=== PATIENT | female | born 1965 | race Caucasian/White ===

== ENCOUNTER → 2020-01-02 15:52 | Outpatient (BNVA) | payer SELFPAY | PROVIDERS: Family Provider Nurse Practitioner Family; PCP Nurse Practitioner Family; Visit Provider Nurse Practitioner Family | DX: R05 Cough (principal); R69 Illness, unspecified; J06.9 Acute upper respiratory infection, unspecified | CPT/HCPCS: 87804 ==

== ENCOUNTER → 2020-07-19 11:09 | Outpatient (BNVA) | payer OTHER, SELFPAY | PROVIDERS: Family Provider Nurse Practitioner Family; PCP Nurse Practitioner Family; Visit Provider Nurse Practitioner Family | DX: Z20.828 Contact with and (suspected) exposure to other viral communicable diseases (principal); J06.9 Acute upper respiratory infection, unspecified | CPT/HCPCS: 87635 ==

== ENCOUNTER → 2020-11-20 16:39 | Outpatient (BNVA) | payer BC, SELFPAY | PROVIDERS: Family Provider Nurse Practitioner Family; PCP Nurse Practitioner Family; Visit Provider Registered Nurse | DX: I10 Essential (primary) hypertension (principal) | CPT/HCPCS: 80053; 80061; 85025 ==

== ENCOUNTER → 2021-04-26 09:28 | Outpatient (BNVA) | payer BC, SELFPAY | PROVIDERS: Family Provider Nurse Practitioner Family; PCP Registered Nurse; Visit Provider Registered Nurse | DX: R10.9 Unspecified abdominal pain (principal); R10.11 Right upper quadrant pain; F41.8 Other specified anxiety disorders | CPT/HCPCS: 81000 ==

== ENCOUNTER → 2021-05-06 16:43 | Outpatient (BNVA) | payer BC, SELFPAY | PROVIDERS: Family Provider Nurse Practitioner Family; PCP Registered Nurse; Visit Provider Registered Nurse | DX: R10.11 Right upper quadrant pain (principal); K76.89 Other specified diseases of liver | CPT/HCPCS: 81000 ==

== ENCOUNTER 2021-05-11 08:14 | Emergency (ER) | payer BC, SELFPAY ==
[2021-05-11 08:25] VITALS: BP 156/93; PULSE 77; RESP 18; TEMP 36.6; O2SAT 96; BMI 20.7
[2021-05-11 08:32] VITALS: BP 147/88; RESP 18
--- NOTE | 2021-05-11 08:39 | ED_ITS ---
HPI - Abdominal Pain General: Chief Complaint: Abdominal Pain Stated Complaint: R ABD pain Time Seen by Provider: 05/11/21 08:20 History of Present Illness: HPI narrative: Patient is a 56-year-old female comes to the ED with abdominal pain. Patient has been having this pain for the past 2 weeks. She has seen her primary care physician for this complaint and she had an ultrasound of her gallbladder done back around April 28 that showed sludge in the gallbladder. She says that she has an appointment with an [facility] general surgeon on May 23 to discuss getting gallbladder removed. The past couple days the pain is gotten worse and she currently rates the pain at 10 out of 10. It is located in the right upper quadrant of her abdomen and it radiates to towards her back right shoulder. She has nausea and says she has not been able to eat much or drink much over the past couple days. Denies any emesis. She has a past surgical history of hysterectomy.. Associated Symptoms: Reports diarrhea and nausea; Denies chills, constipation, dysuria, fever(s), hematochezia, hematuria and vomiting Review of Systems Const: Denies: fever(s), chills or fatigue Eyes: Denies: change in vision or eye discomfort ENMT: Denies: throat pain, odynophagia, nasal discharge or nasal congestion Card: Denies: chest pain, palpitations, edema, swelling of feet/ankles, dyspnea on exertion or orthopnea Resp: Denies: dyspnea, productive cough or non-productive cough GI: Reports: abdominal pain, nausea and diarrhea; Denies: vomiting, constipation or hematochezia : Denies: flank pain, dysuria or hematuria Musc: Denies: neck pain, back pain or extremity swelling Skin/Breast: Denies: rash or new lesions Neuro: Denies: headache(s), numbness in extremities or weakness in extremities PFSH ED PFSH: Medical History Depression with anxiety Essential hypertension Social History Smoking and tobacco status: current every day smoker cigarettes Packs smoked per day: 1 Second hand smoke exposure: Yes Physical Exam Const: COMMON NORMALS: no acute distress, patient oriented x3, healthy appearing and alert GENERAL APPEARANCE: cooperative and comfortable HENMT: COMMON NORMALS: normocephalic HEAD & SCALP: normocephalic MOUTH: Normal oral and palatal mucosa present THROAT: posterior oropharynx normal and uvula midline Neck/C-Spine: COMMON NORMALS: supple GENERAL: Yes normal visual inspection Resp: COMMON NORMALS: normal respiratory effort, No retractions, No use of accessory muscles and clear to auscultation bilaterally AUSCULTATION: clear to auscultation bilaterally Cardio: COMMON NORMALS: regular rate, regular rhythm, S1 normal heart sound present, S2 normal heart sound present, No gallops present (Cardio), No clicks present (Cardio), No murmurs present (Cardio) and Peripheral pulses 2+ throughout RATE: regular rate RHYTHM: regular rhythm HEART SOUNDS: S1 normal heart sound present and S2 normal heart sound present PERIPHERAL PULSES: Peripheral pulses 2+ throughout GI: COMMON NORMALS: Normal to inspection, nondistended, normoactive bowel sounds present, Soft to palpation and no masses PALPATION: Yes Soft to palpation and Yes Tenderness to palpation present (GI) Details: RUQ (Positive Diaz sign) : COMMON NORMALS: Yes no CVA tenderness BLADDER/KIDNEY EXAM: Yes no CVA tenderness Back/Pelvis: COMMON NORMALS: no CVA tenderness Extremity: COMMON NORMALS: normal to inspection Neuro: COMMON NORMALS: patient oriented x3 SENSORIUM/ORIENTATION: Yes alert GAIT: Yes Normal gait present Skin: GENERAL SKIN EXAM: dry skin Course Vital Signs: Vital signs: Vital Signs Temperature 97.8 F 05/11/21 08:25 Pulse Rate 98 05/11/21 11:31 Respiratory Rate 18 05/11/21 11:31 Blood Pressure 130/81 05/11/21 11:31 Pulse Oximetry 96 05/11/21 11:31 MDM - Abdominal Pain MDM Narrative: Medical decision making narrative: Patient is a 56-year-old female comes to the ED with right upper quadrant abdominal pain. She has had this right upper quadrant abdominal pain before in the past. she currently has an appointment with a general surgeon scheduled for May 23. Vitals are stable. Patient appears nontoxic and in no acute distress. CBC, CMP and lipase were unremarkable. Ultrasound of the gallbladder showed no significant abnormality. I put an order with case management to see if patient's appointment with a general surgeon can be moved up to an earlier date. Patient diagnosed with biliary colic and discharged home with a prescription for hydrocodone and Zofran. Return ED precautions given. Clear liquid diet and advance slowly as tolerated. Patient understood and agreed with plan. Lab Data: Attestation: I reviewed the patient's lab results. Labs: Lab Results 05/11/21 05/11/21 05/11/21 Range/Units 08:59 09:32 09:32 WBC 6.0 (4.0-10.0) 10^3/ uL RBC 5.07 (4.1-5.3) 10^6/u L Hgb 15.0 (11.5-15.3) g/dL Hct 45.2 (37.0-47.0) % MCV 89.2 (81-99) fL MCH 29.6 (28.0-34.0) pg MCHC 33.2 (30.0-36.0) g/dL RDW 13.1 (12.1-15.1) % Plt Count 205 (130-400) 10^3/c mm MPV 10.0 (7.4-10.4) fL Neut % (Auto) 56.1 % Lymph % (Auto) 34.9 % Reeves % (Auto) 6.8 % Eos % (Auto) 1.2 % Baso % (Auto) 0.8 % Neut # (Auto) 3.36 (1.8-7.7) 10^3/u L Lymph # (Auto) 2.1 (0.8-4.8) 10^3/u L Reeves # (Auto) 0.4 (0.2-0.9) 10^3/u L Eos # (Auto) 0.1 (0.0-0.8) 10^3/u L Baso # (Auto) 0.1 (0.0-0.1) 10^3/u L Nucleated RBC % (a uto) 0 % Nucleated RBCs # 0.0 /100WBC Sodium 143 (136-145) mmol/L Potassium 4.3 (3.5-5.1) mmol/L Chloride 109 H (98-107) mmol/L Carbon Dioxide 23 (22-29) mmol/L Anion Gap 15.3 (5-19) BUN 15 (6-20) mg/dL Creatinine 1.0 H (0.5-0.9) mg/dL GFR Calculation 57.4 L (90-130) mL/min Glucose 93 (65-115) mg/dL Calculated Osmolal ity 297 H (285-295) mOsm/k g Calcium 8.8 (8.5-10.5) mg/dL Total Bilirubin 0.4 (0.15-1.2) mg/dL AST 12 (0-32) U/L ALT 14 (0-33) U/L Alkaline Phosphata se 66 (35-105) IU/L Total Protein 6.2 L (6.6-8.7) g/dL Albumin 4.4 (3.5-5.2) g/dL Globulin 1.8 (1.3-4.6) g/dL Lipase 19 (13-60) U/L Urine Color Yellow (Yellow) Urine Appearance Clear (CLEAR) Urine pH 5 (5-7) Ur Specific Gravit y 1.015 (1.005-1.030) Urine Protein Neg (Negative) Urine Glucose (UA) Norm (Normal) Urine Ketones Negative (Negative) Urine Blood 3+ H (Negative) Urine Nitrate Negative (Negative) Urine Bilirubin Neg (Negative) Urine Urobilinogen Norm (Negative) mg/dL Ur Leukocyte Lu ase Negative (Negative) Urine RBC 0-4 H (0-2) /hpf Urine WBC Rare (0-5) /hpf Ur Squamous Epith Cells 0-4 H (0-5) /hpf Amorphous Sediment Not Reportable Urine Bacteria Trace (NONE) /hpf Imaging Data ^: US: Attestation: I personally reviewed and interpreted this imaging study as follows: Radiologist's impression: [address] [address] Ultrasound Report Signed Patient: Jaki Larson I Unit #: [id number] : 1965 Age/Sex: 56 / F ADM Date: 05/11/21 Loc: ER Room/Bed: Attending Dr: Ordering Provider/Ordering MD: Nasim Sears Date of Service: 05/11/21 Procedure(s): US gall bladder [id number] Accession Number(s): [id number] Report Number: [id number] PROCEDURE INFORMATION: Exam: US Abdomen, Limited; Right Upper Quadrant Exam date and time: 05/11/2021 8:46 AM Age: 56 years old Clinical indication: Abdominal pain; Additional info: Ruq pain with nausea TECHNIQUE: Imaging protocol: US abdomen. Real time ultrasound with image documentation. Limited exam focused on the right upper quadrant. COMPARISON: No relevant prior studies available. FINDINGS: Liver: There is a 1.2 cm benign cyst in the liver probably in the left lobe. Otherwise liver is unremarkable. No suspicious liver masses are seen. Gallbladder: Normal. No gallstones. There is no gallbladder wall thickening. Common bile duct: Normal. No stones. No dilation. Pancreas: Visualized pancreas is unremarkable. Right kidney: Normal. No mass. No hydronephrosis. US/US gall bladder [id number] IMPRESSION: No significant abnormality. Normal gallbladder and bile ducts. Dictated By: Lamonte Elkins Signed By: Lamonte Elkins Signed Date/Time: 05/11/211126 DD/ 112 Discharge Plan Discharge Patient Disposition: Home Clinical Impression: Biliary colic Condition: Stable Prescriptions: New Zofran 4 mg tablet 4 mg PO Q8H Qty: 15 RF: 0 No Action fluticasone propionate [Flonase Allergy Relief] 50 mcg/actuation spray,suspension 1 spray intranasal BID Qty: 16 RF: 0 buspirone 5 mg tablet 5 mg PO TID PRN (Reason: anxiety) 30 Days Qty: 75 RF: 2 escitalopram oxalate 10 mg tablet 10 mg PO DAILY 90 Days Qty: 90 RF: 1 pantoprazole 20 mg tablet,delayed release (DR/EC) 20 mg PO DAILY 90 Days Qty: 90 RF: 1 ondansetron HCl [Zofran] 4 mg tablet 4 mg PO BID 5 Days Qty: 10 RF: 0 telmisartan [Micardis] 40 mg tablet 40 mg PO DAILY Qty: 90 RF: 0 Discharge Orders: Discharge ED (Routine); Ordered 05/11/21 Ordered By: Nasim Sears Referrals: Lulu Vidal FNP [Primary Care Provider] - Discharge Diet: Advance as tolerated and Clear Liquid Discharge Activity: Increase activity as tolerated Patient Instructions: Biliary Colic (ED), Opioid Safety Activity Restrictions/Additional Instructions: Follow-up with medical provider as directed. Case management will be contacting you to see if they can move up your previously scheduled general surgery appointment. Take medications as prescribed. Return to the ER or your medical provider if condition worsens. Please read and understand discharge instructions. Thank you for choosing [facility] for your healthcare needs today. Please realize this is an emergency room and that we are providing you with a medical screening exam and this may not be complete and all inclusive of all the testing and or work up that you may need to determine your ailment or severity of your illness. It is very important that you follow up as instructed or that you return to the Emergency Department should you have concerns or if your condition changes or worsens in any way. Coding Level of Care Code ED News Camera Person for Garrett Fwd Exam Comprehensive
--- NOTE | 2021-05-11 08:46 | USR_ITS ---
PROCEDURE INFORMATION: Exam: US Abdomen, Limited; Right Upper Quadrant Exam date and time: 05/11/2021 8:46 AM Age: 56 years old Clinical indication: Abdominal pain; Additional info: Ruq pain with nausea TECHNIQUE: Imaging protocol: US abdomen. Real time ultrasound with image documentation. Limited exam focused on the right upper quadrant. COMPARISON: No relevant prior studies available. FINDINGS: Liver: There is a 1.2 cm benign cyst in the liver probably in the left lobe. Otherwise liver is unremarkable. No suspicious liver masses are seen. Gallbladder: Normal. No gallstones. There is no gallbladder wall thickening. Common bile duct: Normal. No stones. No dilation. Pancreas: Visualized pancreas is unremarkable. Right kidney: Normal. No mass. No hydronephrosis. US/US gall bladder [id number] IMPRESSION: No significant abnormality. Normal gallbladder and bile ducts.
--- NOTE | 2021-05-11 08:57 | PC.NURSE ---
Ultrasound at patient bedside.
[2021-05-11] MEDS: sodium chloride 0.9% 1,000 ML 999 ML IV (09:40)
[2021-05-11] MEDS: ondansetron 2 mg/ML SDV 2 mL 4 MG IVP (09:41)
[2021-05-11 09:42] LABS: Basophils # 0.1 10^3/uL (0.0-0.1); Basophils % 0.8 %; Eosinophils # 0.1 10^3/uL (0.0-0.8); Eosinophils % 1.2 %; Hematocrit 45.2 % (37.0-47.0); Lymphocytes # 2.1 10^3/uL (0.8-4.8); Lymphocytes % 34.9 %; Mean Corpuscular HGB Conc 33.2 g/dL (30.0-36.0); Mean Corpuscular Hemoglobin 29.6 pg (28.0-34.0); Mean Corpuscular Volume 89.2 fL (81-99); Monocytes # 0.4 10^3/uL (0.2-0.9); Monocytes % 6.8 %; Neutrophils # 3.36 10^3/uL (1.8-7.7); Neutrophils % 56.1 %; Nucleated Red Blood Cells % 0 %; Platelet Count 205 10^3/cmm (130-400); Red Blood Count 5.07 10^6/uL (4.1-5.3); Red Cell Distribution Width 13.1 % (12.1-15.1)
[2021-05-11 09:45] LABS: Add Urine Culture? No; Bacteria Urine TRACE /hpf; Bilirubin Urine Neg (Negative); Blood Urine 3+ (Negative); Glucose Urine UA Norm (Normal); Ketones Urine Negative (Negative); Leukocyte Esterase Urine Negative (Negative); Nitrate Urine Negative (Negative); Protein Urine Neg (Negative); RBC Urine 0-4 /hpf (0-2); Specific Gravity, Urine 1.015 (1.005-1.030); Squamous Epithelial Cell Urine 0-4 /hpf (0-5); Urine Appearance Clear (CLEAR); Urine Color Yellow (Yellow); Urobilinogen Urine Norm (Negative); WBC Urine RARE /hpf (0-5); pH Urine 5 (5-7)
[2021-05-11 09:49] VITALS: RESP 18
[2021-05-11] MEDS: morphine 4 mg/mL SDV 1 mL IVP (09:49)
[2021-05-11 09:55] VITALS: BP 134/82; PULSE 63; RESP 18; O2SAT 97
[2021-05-11 10:13] LABS: Alanine Aminotransferase 14 U/L (0-33); Albumin Level 4.4 g/dL (3.5-5.2); Alkaline Phosphatase 66 IU/L (35-105); Anion Gap 15.3 (5-19); Aspartate Amino Transferase 12 U/L (0-32); Blood Urea Nitrogen 15 mg/dL (6-20); Calcium 8.8 mg/dL (8.5-10.5); Carbon Dioxide 23 mmol/L (22-29); Chloride 109 mmol/L (98-107); Globulin 1.8 g/dL (1.3-4.6); Glomerular Filtration Rate 57.4 mL/min (90-130); Glucose 93 mg/dL (65-115); Lipase 19 U/L (13-60); Osmolality Calculated 297 mOsm/kg (285-295); Potassium 4.3 mmol/L (3.5-5.1); Sodium 143 mmol/L (136-145); Total Bilirubin 0.4 mg/dL (0.15-1.2); Total Protein 6.2 g/dL (6.6-8.7)
[2021-05-11 11:31] VITALS: BP 130/81; PULSE 98; RESP 18; O2SAT 96
--- NOTE | 2021-05-13 11:19 | DCPLANNER ---
paper mill manager had message to schedule a follow up appointment for patient with general surgery. paper mill manager emailed patients information to both Tiffany and Maia at [facility] General Surgery. paper mill manager also asked the clinic if patients appointment scheduled could be rescheduled sooner. Patients information will be printed and reviewed.
--- NOTE | 2021-05-14 14:53 | DCPLANNER ---
Patient has a follow up appointment scheduled for , May 16, 2021 at 3:[address] Gandara. Clinic will call patient with appointment information.
--- NOTE | 2021-06-14 13:57 | DCPLANNER ---
Patient had a follow up appointment scheduled for 05.16.21 with general surgery - patient did attend appointment.
== END 2021-05-11 11:41 | disposition home or self-care (01) ==
PROVIDERS: Emergency Provider Physician Assistant; PCP Registered Nurse
DX: K80.50 Calculus of bile duct without cholangitis or cholecystitis without obstruction (principal); I10 Essential (primary) hypertension; F17.210 Nicotine dependence, cigarettes, uncomplicated
CPT/HCPCS: 76705; 80053; 81001; 83690; 85025; 96361; 96374; 96375; 99284; J2270; J2405; J7030

== ENCOUNTER 2021-05-21 06:49 | Outpatient (CLI) | payer BC, SELFPAY ==
--- NOTE | 2021-05-21 08:00 | NM_ITS ---
WS: [id number] NUCLEAR MEDICINE HIDA SCAN CLINICAL INFORMATION: R10.11 - Right upper quadrant pain TECHNIQUE: Following intravenous administration of 5.7 mCi of technetium 99m mebrofenin, images of th e abdomen were obtained over the course of 60 minutes. Next, gallbladder ejection fraction was determ ined by obtaining preprandial and one-hour postprandial images of the gallbladder following oral cody stion of Ensure. COMPARISON: US 05/15 FINDINGS: Normal hepatic uptake at 5 minutes. Normal hepatic excretion. Common bile duct and small bowel activi ty normally visualized. Gallbladder is visualized by 20 minutes. No evidence of acute cholecystitis. Gallbladder ejection fra ction 74% within normal limits. No evidence of chronic cholecystitis. NM/NM hepatobiliary w phar* [id number] IMPRESSION: 1. No evidence of acute or chronic cholecystitis. 2. Gallbladder ejection fraction 74% within normal limits.
== END 2021-05-21 06:50 | disposition home or self-care (01) ==
PROVIDERS: PCP Registered Nurse; Visit Provider Surgery
DX: R10.11 Right upper quadrant pain (principal)
CPT/HCPCS: 78227; A9537

== ENCOUNTER → 2021-05-24 11:36 | Outpatient (BNVA) | payer BC, SELFPAY | PROVIDERS: PCP Registered Nurse; Visit Provider Surgery | DX: Z20.822 Contact with and (suspected) exposure to COVID-19 (principal); Z01.812 Encounter for preprocedural laboratory examination | CPT/HCPCS: 87635 ==

== ENCOUNTER → 2021-05-30 15:33 | Outpatient (BNVA) | payer BC, SELFPAY | PROVIDERS: PCP Registered Nurse; Visit Provider Surgery | DX: Z20.822 Contact with and (suspected) exposure to COVID-19 (principal); Z01.812 Encounter for preprocedural laboratory examination | CPT/HCPCS: 87635 ==

== ENCOUNTER 2021-06-04 08:44 | Day surgery (SDC) | payer BC, SELFPAY ==
[2021-06-03 13:19] VITALS: BMI 20.2
[2021-06-04] VITALS (8 sets, daily range): BP systolic 101–141; BP diastolic 53–87; PULSE 63–72; RESP 16–22; TEMP 36.2–36.6; O2SAT 94–99
[2021-06-04] MEDS: sodium chloride 0.9% 1,000 ML 30 ML IV (09:33)
--- NOTE | 2021-06-04 10:09 | ANES.PREANE2 ---
Pre-Anesthetic Assessment Pre-Anesthetic Assessment: Height/Weight: Height 1.65 m Weight 55.338 kg Temp Pulse Resp BP Pulse Ox 97.2 F L 63 16 141/87 97 06/04/21 09:17 06/04/21 09:17 06/04/21 09:17 06/04/21 09:17 06/04/21 09:17 Proposed Procedure: Operation Date: 06/04/21 13:30 Proposed Procedures p Laparoscopic Cholecystectomy 96833 R10.9(Not Applicable) - Nicolas Gandara MD Was Beta Estuardo taken within 24 hours: N/A Was Clonidine taken within 24 hours: N/A Last intake: Intake Last Liquid Date 06/04/21 Last Liquid Time 04:00 Last Solid Date 06/03/21 Last Solid Time 17:00 Social: Social History: Tobacco and No alcohol Exam: Pre-Anes Outpt Exam: alert, oriented x 3 and regular rate & rhythm Airway: Submandibular: WNL Cervical ROM: WNL MP: 2 Dentition: Full Pulmonary: Pulmonary: COPD CV/HEM: CV/HEM: HTN GI: GI: GERD Neuropsych: Neuropsych: Anxiety and Depression Anesthetic Plan: ASA status: 2 Anesthesia: General Risk of > 500 ml blood loss (7ml/kg in children): No Meds/Allergies Current Medications: Current Medications Generic Name Dose Route Start Last Admin Trade Name Freq PRN Reason Stop Dose Admin Sodium Chloride 1,000 mls @ 30 ml s/hr 06/04/21 09:15 06/04/21 09:33 Sodium Chloride 0.9% IV 06/05/21 09:14 30 mls/hr .Q24H PATRICK Administration PFSH Anesthesia PFSH: Medical History Depression with anxiety Essential hypertension Social History Second hand smoke exposure: Yes Data Anesthesia Cardiac Studies: No Data to Display
--- NOTE | 2021-06-04 10:13 | W.PM.OPSUD ---
Surgery/Procedure H&P Update DATE OF PROCEDURE: June 04, 2021 DATE H&P PERFORMED: 05/16/21 H&P UPDATE INFORMATION: I have reviewed H&P completed within last 30 days, I have examined patient prior to procedure and No changes to prior documentation PREOP DIAGNOSIS: Biliary colic PRIMARY INDICATION FOR PROCEDURE: The same PLANNED PROCEDURE: Operation Date: 06/04/21 13:30 Proposed Procedures p Laparoscopic Cholecystectomy 69431 R10.9(Not Applicable) - Nicolas Gandara MD
[2021-06-04] MEDS: ampicillin-sulbactam 3 GM in sodium chloride 0.9% (plus) 50 ML IV (10:38)
[2021-06-04] MEDS: lidocaine 2% INJ 20 mL INJECTION (11:01)
--- NOTE | 2021-06-04 11:31 | P.OP_ITS ---
Operative Report Date of procedure: June 04, 2021 Pre-op Diagnosis: Biliary colic Post-op diagnosis: same Post-op Findings: Chronic cholecystitis and liver ptosis Procedure Done: Laparoscopic cholecystectomy Implants: Piece of Surgicel towards the gallbladder fossa and onto the second part of the duodenum Specimens removed/disposition: Gallbladder and contents Surgeon: Nicolas Gandara Dinkey Engine Operator: Surgical Pradeep Harris and or Larry student Circulating nurses Elham and Erendira Anesthesia: General (GETA QUILL MACHINE TENDER Will Smart) Estimated blood loss (mL): 10 Condition: stable Disposition: same day Brief History: Symptomatic biliary colic Procedure: Patient was identified in the holding area and taken back to the operative suite, placed in supine position intubated by anesthesia . Time-out was done verifying the patient's name/date of /planned procedure and destination after the procedure, all were in agreement. SCDs confirmed to be functioning, preoperative antibiotics administered per protocol, and beta ronit protocol was confirmed. Patient was appropriately secured to the table, footboard was applied to the OR table, before prep and drape anesthesia was asked to tilt the table back and forth to make sure that the patient is appropriately secured and she was. Prep and drape of the abdomen was done under the usual sterile technique, followed by that infra umbilical transverse skin incision using a previous scar,skin incision was done by a 15 blade knife, and stay sutures were applied to the fascia and Looney trocar technique was used to enter the abdominal without injuring any abdominal viscera, started by low flow gas insufflation followed by a high flow, started with a 10 mm laparoscope and under direct vision there was no evidence of any injuries, the scope then switched to a 30? ,10 millimeter scope and under direct visualization 5 millimeter trocar was inserted in the epigastric region followed by two 5 mm trocars were inserted in the right upper quadrant that was done after injection of local lidocaine 2% at all incision sites. Gallbladder showed chronic cholecystitis with associated adhesions, patient noticed to have liver ptosis Patient was then positioned in the head up and tilted to the left Ratcheted forceps were introduced into the lateral most 5mm port and was applied unto the fundus of the gallbladder cephalad and using Bullet forceps the infundibulum of the gallbladder was retracted laterally. Adhesions were taken down attaching the second part of the duodenum to the gallbladder, hemostasis was achieved by application of 5 mm clip followed by a piece of Surgicel. Using [place] forceps then L-hook cautery to dissect the peritoneum overlying the Calot's triangle which was then opened medially and laterally until the cystic duct and the cystic artery were skeletonized. Dissection was carried along the body of the gallbladder and after ensuring critical view of safety was identfied. Cystic duct and cystic artery where seen connected to the gallbladder. Clips were applied on the cystic duct towards the common bile duct 1 towards the gallbladder then divided is in sharp scissors, 2 clips were then applied onto the cystic artery and 1 towards the gallbladder and divided by sharp scissors. Dissection was then carried along of the gallbladder from the gallbladder fossa using cautery as well as sharp dissection with heat energy. The gallbladd er then was dissected out from the gallbladder fossa totally , cholecystectomy was then achieved and was placed in an Endo Catch bag and then retrieved from the Looney trocar site under direct visualization using a 5 mm 30? scope through the epigastric trocar, specimen was then passed to the circulating nurse to go for permanent pathology,irrigation and hemostasis was done to the gallbladder fossa after hemostasis was secured, final survey laparoscopy was done that showed no injuries. Suction irrigation was obtained. The infra umbilical fascial defect was then closed using interrupted #1 PDS sutures using a fascial closure device ;Mele Estes under direct visualization Gas was allowed to deflate,Trocars were then taken out under direct vision there was no evidence of bleeding Specimen was passed to the circulating nurse for permanent pathology. No drains were placed and the infant umbilical incision as well as all trocar sites were closed by 3-0 Vicryl by 4-0 Monocryl to approximate the skin edges of the infra umbilical incision, dressing was applied in the form of Dermabond and the patient patient got extubated and was taken to recovery area in a stable condition. Count of sponges, needles and instruments were completed at the end of the procedure I was present for the whole entire procedure.
[2021-06-04] MEDS: ondansetron 2 mg/ML SDV 2 mL 4 MG IVP (12:25)
[2021-06-04] MEDS: HYDROcodone-acetaminophen 5-325 mg Tablet 1 TAB PO (12:40)
--- NOTE | 2021-06-04 16:04 | ANE.PACU2 ---
Inpatient post-anesthesia follow up: Airway intact: Yes Vital signs: Temperature 98 F Pulse Rate 64 Respiratory Rate 18 Blood Pressure 101/68 Pulse Oximetry 94 Oxygen Delivery Me thod Room Air Oxygen Flow Rate 8 Fraction of Inspir ed Oxygen Hydration adequate: Yes Nausea and vomiting: No Pain level: 2 Mental status: Baseline
== END 2021-06-04 12:57 | disposition home or self-care (01) ==
PROVIDERS: PCP Registered Nurse; Visit Provider Surgery
PROC: 0FT44ZZ Resection of Gallbladder, Percutaneous Endoscopic Approach (ICD-10-PCS; CPT 47562; principal; 2021-06-04 13:20)
DX: K81.1 Chronic cholecystitis (principal); J44.9 Chronic obstructive pulmonary disease, unspecified; I10 Essential (primary) hypertension; K21.9 Gastro-esophageal reflux disease without esophagitis; F41.9 Anxiety disorder, unspecified; F32.9 Major depressive disorder, single episode, unspecified
CPT/HCPCS: 47562; 88304; 96375; J0295; J1100; J2405; J2704; J2710; J3010; J3490; J7030

== ENCOUNTER → 2021-08-28 08:38 | Outpatient (BNVA) | payer BC, SELFPAY | PROVIDERS: PCP Registered Nurse; Visit Provider Surgery | DX: Z20.822 Contact with and (suspected) exposure to COVID-19 (principal); K92.1 Melena; R10.9 Unspecified abdominal pain | CPT/HCPCS: 87635 ==

== ENCOUNTER 2021-09-04 07:37 | Day surgery (SDC) | payer BC, SELFPAY ==
[2021-09-02 12:09] VITALS: BMI 20.2
--- NOTE | 2021-09-04 08:05 | ANES.PREANE2 ---
Pre-Anesthetic Assessment Pre-Anesthetic Assessment: Height/Weight: Height 1.65 m Weight 55.338 kg Preop Diagnosis: Biliary colic Proposed Procedure: Operation Date: 09/04/21 09:30 Proposed Procedures p EGD/Colon 73992 R10.9(Not Applicable) - Nicolas Gandara MD s Colonoscopy 47782 K92.1(Not Applicable) - Nicolas Gandara MD Familial anesthetic complications: None Last intake: > 8 hrs Social: Social History: Tobacco and No alcohol Exam: Pre-Anes Outpt Exam: alert, oriented x 3, clear to auscultation bilaterally and regular rate & rhythm Airway: MP: 1 Dentition: Other (missing) Pulmonary: Pulmonary: Asthma CV/HEM: CV/HEM: HTN GI: GI: GERD Anesthetic Plan: ASA status: 3 Anesthesia: MAC Risk of > 500 ml blood loss (7ml/kg in children): No PFSH Anesthesia PFSH: Medical History Depression with anxiety Essential hypertension Social History Smoking and tobacco status: current every day smoker cigarettes Packs smoked per day: 1 Second hand smoke exposure: Yes Data Anesthesia Cardiac Studies: No Data to Display
[2021-09-04 08:55] VITALS: BP 126/88; PULSE 82; RESP 18; TEMP 36; O2SAT 97
--- NOTE | 2021-09-04 09:04 | PC.NURSE ---
\Patient had gallbladder removed in May of this year. c/o of RUQ abdominal pain. Rates 2 on scale 0-10. Worse when she eats.
[2021-09-04] MEDS: sodium chloride 0.9% 1,000 ML 30 ML IV (09:09)
--- NOTE | 2021-09-04 09:44 | W.PM.OPSFHP ---
Same Day Surgery H&P Indication for Procedure/HPI DATE OF PROCEDURE: September 04, 2021 CHIEF COMPLAINT/INDICATIONFOR SURGICAL PROCEDURE: My tumrahel miranda PREOP DIAGNOSIS: Blood in stool PLANNED PROCEDRUE: Operation Date: 09/04/21 09:30 Proposed Procedures p EGD/Colon 45037 R10.9(Not Applicable) - Nicolas Gandara MD s Colonoscopy 47892 K92.1(Not Applicable) - Nicolas Gandara MD 06/10/2021 Patient comes to the status post laparoscopic cholecystectomy 06/04/2021 and was found to haveGallbladder, cholecystectomy: ?Chronic cholecystitis. Overall patient feels sore after surgery particularly at the infraumbilical incision site with some bruises. Reports some nausea and chills but no recorded fevers or no evidence of jaundice 06/13/2021 Patient comes today for postop visit status post laparoscopic cholecystectomy 06/04/2021 and has been feeling better and less salt. Denies any nausea vomiting fevers or chills or jaundice. 07/04/2021 Patient comes today complaining of soreness towards the right side, denies any nausea vomiting fevers or chills or jaundice apparently she has been back to work and she has been lifting heavily, likely musculoskeletal origin of her pain. 07/18/2021 Patient overall is feeling well except from some soreness towards the right upper quadrant. She reports history of black stool associated also with blood in stool and never had endoscopies before. 09/04/2021 Patient comes today for diagnostic EGD and colonoscopy ROS All systems have been reviewed negative except as per the above or per problem list Medications/Allergies* Allergies/Adverse Reactions Allergy/AdvReac Type Severity Reaction Status Date / Time No Known Allergies Allergy Verified 09/04/21 09:45 Current Medications: Generic Name Dose Route Start Last Admin Trade Name Freq PRN Reason Stop Dose Admin Sodium Chloride 1,000 mls @ 30 mls/hr 09/04/21 08:30 09/04/21 09:09 Sodium Chloride 0.9% IV 09/05/21 08:29 30 mls/hr .Q24H PATRICK Administration Pertinent History/Comorbid Conditions* Medical History (Updated 07/24/21 @ 09:09 by SHANA Lomeli) Depression with anxiety Essential hypertension Social History Smoking and tobacco status: current every day smoker cigarettes Packs smoked per day: 1 Second hand smoke exposure: Yes Pertinent Exam Findings alert, oriented x 3, regular rate & rhythm and procedure specific exam findings (Abdominal examination shows some tenderness in the right upper quadrant oth) Recommendations Surgery/Procedure today (EGD and colonoscopy) Other Plans: Plan of care; After thorough history and physical examination and reviewing the chart, plan to perform a diagnostic esophagogastroduodenoscopy and diagnostic colonoscopy with possible biopsy and possible polypectomy. I discussed with the patient in detail the risks,benefits,alternatives and indications.The risk of aspiration, bleeding, soft tissue injury, perforation of the stomach/esophagus/colon and other potential concomitant complications were explained to the patient in details also the potential need for Thoracotomy and or Laproscoy/Laparotomy to repair any related complications including but not limited to colectomy and or Closotomy. The patient understood this well and did agree to proceed. Rationale was carefully and clearly discussed with the patient.Appropriate informed consent have been reviewed and signed Verbal and written Instructions were given to the patient for colonoscopy prep Coding Level of Care Code Acute Hot Dip Tinning Supervisor for Garrett Tate
[2021-09-04 10:42] VITALS: BP 103/65; PULSE 64; RESP 16; TEMP 36.2; O2SAT 99
[2021-09-04 10:55] VITALS: BP 139/99; PULSE 73; RESP 16; O2SAT 98
--- NOTE | 2021-09-04 15:38 | ANE.PACU2 ---
Inpatient post-anesthesia follow up: Airway intact: Yes Vital signs: Temperature 97.2 F Pulse Rate 73 Respiratory Rate 16 Blood Pressure 139/99 Pulse Oximetry 98 Oxygen Delivery Me thod Room Air Oxygen Flow Rate Fraction of Inspir ed Oxygen Hydration adequate: Yes Nausea and vomiting: No Pain level: 2 Mental status: Baseline
== END 2021-09-04 11:10 | disposition home or self-care (01) ==
PROVIDERS: PCP Registered Nurse; Visit Provider Surgery
PROC: 0DJ08ZZ Inspection of Upper Intestinal Tract, Via Natural or Artificial Opening Endoscopic (ICD-10-PCS; CPT 43235; principal; 2021-09-04 09:30)
PROC: 0DJD8ZZ Inspection of Lower Intestinal Tract, Via Natural or Artificial Opening Endoscopic (ICD-10-PCS; CPT 45378; 2021-09-04 09:30)
DX: K92.1 Melena (principal); R10.11 Right upper quadrant pain; K21.9 Gastro-esophageal reflux disease without esophagitis; K29.80 Duodenitis without bleeding; K29.50 Unspecified chronic gastritis without bleeding; B96.81 Helicobacter pylori [H. pylori] as the cause of diseases classified elsewhere; D12.7 Benign neoplasm of rectosigmoid junction; K57.30 Diverticulosis of large intestine without perforation or abscess without bleeding; I10 Essential (primary) hypertension; J45.909 Unspecified asthma, uncomplicated; F17.210 Nicotine dependence, cigarettes, uncomplicated
CPT/HCPCS: 43239; 45385; 88305; 96360; 96361; J2704; J7030

== ENCOUNTER 2021-10-21 08:15 | Outpatient (CLI) | payer BC, SELFPAY ==
[2021-10-21] MEDS: iohexol 350 mg/mL 100 mL Btl IV (09:18)
--- NOTE | 2021-10-21 10:00 | CT_ITS ---
WS: [id number] CT ABDOMEN PELVIS TECHNIQUE: Contrast-enhanced CT of the abdomen and pelvis with coronal and sagittal reformatted image s. CLINICAL INFORMATION: R10.11 - Right upper quadrant pain COMPARISON: None. DLP: 667.[address] scans at [facility] use at least one of these dose optimization techniques: automated e xposure control; mA and/or kV adjustment per patient size (includes targeted exams where dose is matc hed to clinical indication); or iterative reconstruction. FINDINGS: Mild diffuse fatty infiltration liver. Prior cholecystectomy. Normal portal vein and splenic vein. No rmal spleen. Small hepatic cyst. Normal GE junction. Lung bases are well aerated. Adrenal glands are normal. Normal renal parenchymal enhancement. No hydronephrosis. Bilateral renal cortical scarring. Normal caliber abdominal aorta. Fat-containing umbilical hernia. N o adenopathy in the abdomen or pelvis. No other significant findings. CT/CT abdomen pelvis w con* [id number] IMPRESSION: 1. Mild diffuse fatty infiltration liver. 2. Prior cholecystectomy. No fluid collections in the right upper quadrant. 3. Small hepatic cyst measuring 8 mm. 4. No hydronephrosis in either kidney. Bilateral renal parenchymal cortical sc arring. 5. No other significant findings.
== END 2021-10-21 08:16 | disposition home or self-care (01) ==
LOC: RAD 08:16
PROVIDERS: PCP Registered Nurse; Visit Provider Surgery
DX: R10.11 Right upper quadrant pain (principal); K76.0 Fatty (change of) liver, not elsewhere classified; Z90.49 Acquired absence of other specified parts of digestive tract; K76.89 Other specified diseases of liver
CPT/HCPCS: 74177

== ENCOUNTER → 2022-07-29 16:28 | Outpatient (BNVA) | payer OTHER, SELFPAY | PROVIDERS: PCP Registered Nurse; Visit Provider Registered Nurse | DX: F41.8 Other specified anxiety disorders (principal); R16.0 Hepatomegaly, not elsewhere classified | CPT/HCPCS: 80076; 85025 ==

== ENCOUNTER 2022-08-31 05:04 | Observation (INO) | payer OTHER, SELFPAY ==
[2022-08-31] VITALS (11 sets, daily range): BP systolic 92–104; BP diastolic 58–67; PULSE 57–90; RESP 14–19; TEMP 36.3–36.7; O2SAT 92–97; BMI 18.9
[2022-08-31] MEDS: ondansetron 2 mg/ML SDV 2 mL 4 MG IVP (05:29)
[2022-08-31] MEDS: fentaNYL 50 mcg/mL INJ 2mL 100 MCG IVP (05:29)
--- NOTE | 2022-08-31 06:17 | W.ED.WOUNDLC ---
HPI - Wound/Laceration General: Chief Complaint: Wound/Laceration Stated Complaint: VAG BLEEDING Time Seen by Provider: 08/31/22 05:07 Source: patient and other History of Present Illness: 57-year-old female with significant vaginal bleeding after intercourse last night. She was seen at an outside facility, and a posterior vaginal wall laceration was closed. She was sent here for further evaluation, as the facility does not have gynecology services. No further bleeding since packing was placed at the outside facility ER. Onset (ago): hour(s) Location: genitals Place: home Patient tetanus UTD: Yes Context: accidental Associated symptoms: Reports pain; Denies chills, fever(s), nausea or vomiting Treatments prior to arrival: other Review of Systems Const: Denies: fever(s) or chills Card: Denies: chest pain Resp: Denies: dyspnea GI: Reports: abdominal pain; Denies: nausea or vomiting [facility] PFSH: Medical History Colon polyp Depression with anxiety Essential hypertension Social History Smoking and tobacco status: current every day smoker cigarettes Packs smoked per day: 1 Second hand smoke exposure: Yes Physical Exam Const: GENERAL APPEARANCE: cooperative; not comfortable and not ill appearing NUTRITIONAL APPEARANCE: thin ORIENTATION/CONSCIOUSNESS: Yes awake, Yes oriented to person, Yes oriented to place and Yes oriented to time HENMT: COMMON NORMALS: normocephalic, atraumatic and Normal external nose present HEAD & SCALP: normocephalic and atraumatic NOSE: Normal external nose present and Normal nares present Eye: COMMON NORMALS: Equal, round and reactive pupils present and EOMs intact bilaterally PUPIL: Yes Equal, round and reactive pupils present Neck/C-Spine: GENERAL: Yes trachea midline Resp: COMMON NORMALS: normal respiratory effort, No use of accessory muscles and clear to auscultation bilaterally AUSCULTATION: clear to auscultation bilaterally GI: COMMON NORMALS: Normal to inspection, nondistended, normoactive bowel sounds present : SPECULUM EXAM - VAGINA: Yes laceration (4 cm deep, posterior vaginal wall with irregular flap) and Yes lesion (questionable at site of laceration) Extremity: COMMON NORMALS: normal to inspection Neuro: REBECCA COMA SCALE: document GCS findings [place] coma scale eye opening: Spontaneous Rebecca coma scale verbal response: Orientated [place] coma scale motor response: Obey commands Rebecca coma scale total score: 15 SENSORIUM/ORIENTATION: Yes oriented to person, Yes oriented to place and Yes oriented to time Course Vital Signs: Vital signs: Vital Signs Temperature 97.5 F L 08/31/22 13:22 Pulse Rate 82 08/31/22 13:22 Respiratory Rate 14 08/31/22 13:22 Blood Pressure 94/58 08/31/22 13:22 Pulse Oximetry 96 08/31/22 11:45 Oxygen Delivery Me thod 08/31/22 12:55 MDM - Wound/Laceration Medical Decision Making Exam revealed a complicated vaginal wall laceration deep inside the canal and posterior. Will be a difficult repair. Consulted obstetrics/gynecology from the emergency department. Recommendations are for admission, pain control, monitor vitals and blood work, and repair in the OR later this morning. Lab Data : 08/31/22 06:28 08/31/22 06:28 Laboratory Results WBC 13.5 10^3/uL (4.0-10.0) H 08/31/22 06:28 RBC 4.58 10^6/uL (4.1-5.3) 08/31/22 06:28 Hgb 13.7 g/dL (11.5-15.3) 08/31/22 06:28 Hct 41.8 % (37.0-47.0) 08/31/22 06:28 MCV 91.3 fl (81-99) 08/31/22 06:28 MCH 29.9 pg (28.0-34.0) 08/31/22 06:28 MCHC 32.8 g/dL (30.0-36.0) 08/31/22 06:28 RDW 13.0 % (12.1-15.1) 08/31/22 06:28 Plt Count 210 10^3/cmm (130-400) 08/31/22 06:28 MPV 9.8 fL (7.4-10.4) 08/31/22 06:28 Neut % (Auto) 83.4 % 08/31/22 06:28 Lymph % (Auto) 7.8 % 08/31/22 06:28 [place] % (Auto) 7.6 % 08/31/22 06: Eos % (Auto) 0.1 % 08/31/22 06: Baso % (Auto) 0.4 % 08/31/22 06: Neut # (Auto) 11.27 10^3/uL (1.8-7.7) H 08/31/22 06:28 Lymph # (Auto) 1.1 10^3/uL (0.8-4.8) 08/31/22 06:28 [place] # (Auto) 1.0 10^3/uL (0.2-0.9) H 08/31/22 06:28 Eos # (Auto) 0.0 10^3/uL (0.0-0.8) 08/31/22: Baso # (Auto) 0.1 10^3/uL (0.0-0.1) 08/31/22 06: Nucleated RBC % (auto) 0 % 08/31/22 Nucleated RBCs # 0.0 /100WBC 08/31/22: PT 12.90 SECONDS (12.1-14.9) 08/31/22 06: INR 0.95 (0.8-1.2) 08/31/22: APTT 27.9 SECONDS (23.9-36.7) 08/31/22: Sodium 139 mmol/L (136-145) 08/31/22 06: Potassium 4.3 mmol/L (3.5-5.1) 08/31/22: Chloride 106 mmol/L (98-107) 08/31/22: Carbon Dioxide 22 mmol/L (22-29) 08/31/22: Anion Gap 15.3 (5-19) 08/31/22: BUN 16 mg/dL (6-20) 08/31/22: Creatinine 0.9 mg/dL (0.5-0.9) 08/31/22: GFR Calculation 64.5 mL/min (90-130) L 08/31/22: Glucose 107 mg/dL (65-115) 08/31/22: Calculated Osmolality 290 mOsm/kg (285-295) 08/31/22: Calcium 8.9 mg/dL (8.5-10.5) 08/31/22 06:28 Total Bilirubin 0.5 mg/dL (0.15-1.2) 08/31/22 06:28 AST 14 U/L (0-32) 08/31/22 06:28 ALT 12 U/L (0-33) 08/31/22 06:28 Alkaline Phosphatase 78 U/L (35-105) 08/31/22 06:28 Total Protein 6.4 g/dL (6.6-8.7) L 08/31/22 06:28 Albumin 4.3 g/dL (3.5-5.2) 08/31/22 06:28 Globulin 2.1 g/dL (1.3-4.6) 08/31/22 06:28 Blood Type O Positive 08/31/22 06:28 Rho(D) Type Positive 08/31/22 06:28 Antibody Screen Negative 08/31/22 06:28 Discharge Plan Discharge Patient Disposition: Admitted As Inpatient Admit Provider: Joe Ventura Clinical Impression: Laceration of vagina, complicated Condition: Stable Discharge Diet: Advance as tolerated Discharge Activity: Limit activity as instructed Coding Level of Care Code ED Arabic Linguist for Garrett Tate Exam Problem Focused
[2022-08-31 06:41] LABS: Basophils # 0.1 10^3/uL (0.0-0.1); Basophils % 0.4 %; Eosinophils % 0.1 %; Hematocrit 41.8 % (37.0-47.0); Hemoglobin 13.7 g/dL (11.5-15.3); Lymphocytes # 1.1 10^3/uL (0.8-4.8); Lymphocytes % 7.8 %; Mean Corpuscular HGB Conc 32.8 g/dL (30.0-36.0); Mean Corpuscular Hemoglobin 29.9 pg (28.0-34.0); Mean Corpuscular Volume 91.3 fl (81-99); Mean Platelet Volume 9.8 fL (7.4-10.4); Monocytes % 7.6 %; Neutrophils # 11.27 10^3/uL (1.8-7.7); Neutrophils % 83.4 %; Nucleated Red Blood Cells % 0 %; Platelet Count 210 10^3/cmm (130-400); Red Blood Count 4.58 10^6/uL (4.1-5.3); White Blood Count 13.5 10^3/uL (4.0-10.0)
--- NOTE | 2022-08-31 06:46 | PC.NURSE ---
attempted to place almaguer, unsuccessful.
[2022-08-31 06:52] LABS: INR 0.95 (0.8-1.2)
[2022-08-31 06:53] LABS: Partial Thromboplastin Time 27.9 SECONDS (23.9-36.7)
[2022-08-31 06:58] LABS: Alanine Aminotransferase 12 U/L (0-33); Albumin Level 4.3 g/dL (3.5-5.2); Alkaline Phosphatase 78 U/L (35-105); Anion Gap 15.3 (5-19); Aspartate Amino Transferase 14 U/L (0-32); Blood Urea Nitrogen 16 mg/dL (6-20); Calcium 8.9 mg/dL (8.5-10.5); Carbon Dioxide 22 mmol/L (22-29); Chloride 106 mmol/L (98-107); Creatinine Clr Calc Pharmacy 59.7541; Globulin 2.1 g/dL (1.3-4.6); Glomerular Filtration Rate 64.5 mL/min (90-130); Glucose 107 mg/dL (65-115); Osmolality Calculated 290 mOsm/kg (285-295); Potassium 4.3 mmol/L (3.5-5.1); Sodium 139 mmol/L (136-145); Total Bilirubin 0.5 mg/dL (0.15-1.2); Total Protein 6.4 g/dL (6.6-8.7)
[2022-08-31] MEDS: sodium chloride 0.9% 1,000 ML 100 ML IV (08:12)
--- NOTE | 2022-08-31 09:15 | PC.NURSE ---
Dr. Ventura performing a sterile speculum exam with this nurse at bedside.
[2022-08-31] MEDS: HYDROmorphone 1 mg/mL INJ 1 mL IV (09:28)
[2022-08-31 09:31] LABS: Glucose Urine UA Norm (Normal); Ketones Urine 1+ (Negative); Protein Urine Neg (Negative); Urine Appearance Clear (CLEAR); Urine Color Yellow (Yellow); pH Urine 5 (5-7)
[2022-08-31 09:32] LABS: Add Urine Microscopic? YES; Bilirubin Urine Neg (Negative); Blood Urine 2+ (Negative); Leukocyte Esterase Urine Negative (Negative); Nitrate Urine Negative (Negative); Urobilinogen Urine Norm (Negative)
[2022-08-31 09:33] LABS: RBC Urine 0-4 /hpf (0-2)
[2022-08-31 09:34] LABS: Add Urine Culture? No; Bacteria Urine TRACE /hpf; Mucus Urine TRACE /hpf; Squamous Epithelial Cell Urine RARE /hpf (0-5)
--- NOTE | 2022-08-31 09:35 | P.HP_ITS ---
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 Patient refers she had a hysterectomy over 20 years ago. Review of Systems General: Reports: 10 or more systems reviewed and unremarkable except in HPI and below Const: Denies: fever(s) or chills ENMT: Denies: throat pain Card: Denies: chest pain Resp: Denies: dyspnea, productive cough or non-productive cough GI: Denies: abdominal pain : Reports: vaginal bleeding (Starting during intercourse); Denies: flank pain, difficulty voiding, dysuria, urinary frequency, urinary urgency, urinary incontinence, genital lesions, genital pruritis, vaginal dryness, vaginal odor, vaginal discharge, dysmenorrhea, irregular period, metrorrhagia, amenorrhea, pelvic pain, prolapse symptoms or dyspareunia Medications/Allergies Home Medications Medication Instructions Recorded Confirmed Last Taken Type buspirone 10 mg tablet 10 mg PO TID 30 days #90 tabs 07/29/22 07/29/22 Unknown Rx citalopram 10 mg tablet (Celexa) 10 mg PO DAILY 30 days #30 tabs 07/29/22 07/29/22 Unknown Rx telmisartan 80 mg tablet 80 mg PO DAILY 90 days #90 tabs 07/29/22 07/29/22 Unknown Rx Allergies Allergy/AdvReac Type Severity Reaction Status Date / Time No Known Allergies Allergy Verified 07/29/22 15:42 PFSH SADDLE AND 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 WIRE 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 PFSH: Medical History Colon polyp Depression with anxiety Essential hypertension Social History Smoking and tobacco status: current every day smoker cigarettes Packs smoked per day: 1 Second hand smoke exposure: Yes Vitals/I&O/Wt Last Vital Signs Temp 97.8 F 08/31/22 07:00 Pulse 57 L 08/31/22 07:00 Resp 17 08/31/22 09:28 BP 97/60 08/31/22 07:00 Pulse Ox 97 08/31/22 05:05 O2 Del Method 08/31/22 07:51 08/30/22 08/31/22 08/31/22 23:59 06:59 14:59 Output Total 150 / 150 Balance -150 / -150 Weight last 48 hrs Weight 51.71 kg Weight 51.71 kg Physical Exam Const: COMMON NORMALS: no acute distress, average body habitus and patient oriented x3 GENERAL APPEARANCE: cooperative and well kempt HENMT: COMMON NORMALS: normocephalic and atraumatic HEAD & SCALP: normocephalic and atraumatic Neck/C-Spine: COMMON NORMALS: full ROM Chest: COMMONS NORMALS: normal inspection of the chest Resp: COMMON NORMALS: normal respiratory effort Cardio: COMMON NORMALS: regular rate and regular rhythm RATE: regular rate RHYTHM: regular rhythm GI: INSPECTION: Yes normal to inspection : EXTERNAL FEMALE EXAM: Yes Abnormal introitus (atrophy) and No lesion SPECULUM EXAM - VAGINA: Yes vagina atrophic and Yes vaginal bleeding Amount: spotting and with clots (at vaginal cuff.) SPECULUM EXAM - CERVIX: Yes Cervix absent BIMANUAL EXAM - VAGINA & UTERUS: Yes uterus absent BIMANUAL EXAM - ADNEXA, OTHER: Yes normal adnexae Neuro: COMMON NORMALS: patient oriented x3 Psych: APPEARANCE: Yes well kempt Data : 08/31/22 06:28 08/31/22 06:28 A&P Assessment and plan (1) Laceration of vagina, complicated: Mrs. Larson 57-year-old female G2, P2 with a vaginal laceration/dehiscence at the vaginal cuff after intercourse. Patient was counseled regarding due to sev ere vaginal atrophy, intercourse without proper lubrication abrasion and lacerations. It was recommended reapproximation of vaginal cuff under anesthesia as she cannot tolerate pelvic exam. Plan Vaginal laceration repair. Attestations Medical Necessity Statement*: In my professional opinion per admitting diagnosis for observation and repair of vaginal cuff Coding Level of Care Code Acute Consulting Actuary for Chg Fwd History Expanded Problem Focused Exam Expanded Problem Focused Medical Decision Making Moderate Complexity Diagnoses Laceration of vagina, complicated S31.41XA
--- NOTE | 2022-08-31 10:20 | ANES.PREANE2 ---
Pre-Anesthetic Assessment Height/Weight: Height 1.65 m Weight 51.71 kg Temp Pulse Resp BP Pulse Ox O2 Del Method 97.8 F 57 L 17 97/60 97 08/31/22 07:00 08/31/22 07:00 08/31/22 09:28 08/31/22 07:00 08/31/22 05:05 08/31/22 07:51 Preop Diagnosis: Blood in stool Operation Date: 08/31/22 10:40 Proposed Procedures p Vaginal Laceration Repair(Not Applicable) - Joe Ventura MD Familial anesthetic complications: None Was Beta Estuardo taken within 24 hours: N/A Was Clonidine taken within 24 hours: N/A Last intake: > 8 hrs Social Tobacco and No alcohol Exam alert, oriented x 3, clear to auscultation bilaterally and regular rate & rhythm Airway Mallampati: Class I Dentition: other (missing teeth) Pulmonary occassional inhaler use, but hasn't been diagnosed w/ asthma or COPD CV/HEM Hypertension GI gastritis, denies GERD Anesthetic Plan ASA status: 2 Anesthesia: General Risk of > 500 ml blood loss (7ml/kg in children): No Medications/Allergies Home Medications Medication Instructions Recorded Confirmed Last Taken Type buspirone 10 mg tablet 10 mg PO TID 30 days #90 tabs 07/29/22 07/29/22 Unknown Rx citalopram 10 mg tablet (Celexa) 10 mg PO DAILY 30 days #30 tabs 07/29/22 07/29/22 Unknown Rx telmisartan 80 mg tablet 80 mg PO DAILY 90 days #90 tabs 07/29/22 07/29/22 Unknown Rx Allergies Allergy/AdvReac Type Severity Reaction Status Date / Time No Known Allergies Allergy Verified 07/29/22 15:42 Current Medications Generic Name Dose Route Start Last Admin Trade Name Freq PRN Reason Stop Dose Admin Hydromorphone HCl 1 mg 08/31/22 06:58 08/31/22 09:28 Hydromorphone 1 Mg/Ml Inj 1 Ml IV 1 mg Q2H PRN Administration pain Sodium Chloride 1,000 mls @ 100 mls/hr 08/31/22 06:58 08/31/22 08:12 Sodium Chloride 0.9% IV 100 mls/hr .Q10H PATRICK Administration PFSH Anesthesia Medical History Colon polyp Depression with anxiety Essential hypertension Social History Smoking and tobacco status: current every day smoker cigarettes Packs smoked per day: 1 Second hand smoke exposure: Yes Data Anesthesia : 08/31/22 06:28 08/31/22 06:28 Short CBC 08/31/22 Range/Units 06:28 WBC 13.5 H (4.0-10.0) 10^3/uL Hgb 13.7 (11.5-15.3) g/dL Hct 41.8 (37.0-47.0) % MCV 91.3 (81-99) fl Plt Count 210 (130-400) 10^3/cmm Neut % (Auto) 83.4 % Neut # (Auto) 11.27 H (1.8-7.7) 10^3/uL BMP 08/31/22 06:28 Sodium 139 Potassium 4.3 Chloride 106 Carbon Dioxide 22 BUN 16 Creatinine 0.9 Glucose 107 Calcium 8.9 Liver Function 08/31/22 Range/Units 06:28 Total Bilirubin 0.5 (0.15-1.2) mg/dL AST 14 (0-32) U/L ALT 12 (0-33) U/L Alkaline Phosphatase 78 (35-105) U/L Albumin 4.3 (3.5-5.2) g/dL Urine 08/31/22 Range/Units 08:30 Urine Color Yellow (Yellow) Urine Appearance Clear (CLEAR) Urine pH 5 (5-7) Ur Specific [place] 1.020 (1.005-1.030) Urine Protein Neg (Negative) Urine Glucose (UA) Norm (Normal) Urine Ketones 1+ H (Negative) Urine Nitrate Negative (Negative) Urine Bilirubin Neg (Negative) Ur Leukocyte Esterase Negative (Negative) Urine RBC 0-4 H (0-2) /hpf Urine WBC None (0-5) /hpf Blood Bank 08/31/22 06:28 Blood Type O Positive Rho(D) Type Positive Antibody Screen Negative Coags 08/31/22 06:28 PT 12.90 INR 0.95 APTT 27.9 Cardiac Studies: No Data to Display
[2022-08-31] MEDS: ceFAZolin 2,000 MG in sodium chloride 0.9% (plus) 50 ML 100 MG IV (10:44)
--- NOTE | 2022-08-31 11:30 | PM.OP ---
Operative Report Date of procedure: August 31, 2022 Pre-op diagnosis: Preop Diagnosis vaginal laceration Post-op diagnosis: Vaginal cuff laceration Procedure done: Vaginal cuff laceration repair Implants: None Specimens removed/disposition: None Surgeon: Joe Ventura MD Estimated blood loss (mL): 5 IV fluids (mL): 500 Complications: none. Findings: Vaginal cuff laceration approximately 4 cm in length, Brief History: Mrs. Larson, 57-year-old female, Procedure: After informed consent, the patient was taken to the operating room where general anesthesia was administered. She was placed in the dorsal lithotomy position and prepped and draped in sterile fashion. Pre-Procedure Time-Out verifying the correct patient identity, correct procedure verified with consent, correct site and side, correct patient position, availability of correct implants and any special equipment or requirements was performed and acknowledge by the OR team. A open side speculum was placed in the vagina to visualize the vaginal cuff laceration. Then the vaginal mucosa was reapproximated in the running interlocking fashion with 0 Vicryl. The patient tolerated the procedure well and was taken to the recovery room in a stable condition. Sponge and needle counts were correct x3.
--- NOTE | 2022-08-31 11:42 | P.PCN_ITS ---
PACU note Narrative: VSS, Good respiratory effort, report to CLAY PROCESSING LABOURER Exam: awake
--- NOTE | 2022-08-31 11:42 | PM.PACU ---
PACU note Narrative: VSS, Good respiratory effort, report to COMMUNITY ENGAGEMENT MANAGER Exam: awake
[2022-08-31] MEDS: metoclopramide 5 mg/mL SDV 2 mL 10 MG IVP (12:48)
== END 2022-08-31 13:23 | disposition home or self-care (01) ==
LOC: ER 06:15 → OBGYN 08:07
PROVIDERS: Admitting Provider Obstetrics & Gynecology; Emergency Provider Emergency Medicine; PCP Registered Nurse; Visit Provider Obstetrics & Gynecology
PROC: 0UQG0ZZ Repair Vagina, Open Approach (ICD-10-PCS; CPT 57200; principal; 2022-08-31 10:30)
DX: S31.41XA Laceration without foreign body of vagina and vulva, initial encounter (principal); X58.XXXA Exposure to other specified factors, initial encounter; Z90.710 Acquired absence of both cervix and uterus; I10 Essential (primary) hypertension; F17.210 Nicotine dependence, cigarettes, uncomplicated
CPT/HCPCS: 57200; 51702; 80053; 81001; 85025; 85610; 85730; 86850; 86900; 96365; 96375; 99285; G0378; J0131; J0690; J1170; J2405; J2704; J2710; J2765; J3010; J3490; J7030

== ENCOUNTER 2022-10-02 06:50 | Outpatient (CLI) | payer OTHER, SELFPAY ==
--- NOTE | 2022-10-02 07:15 | US_ITS ---
WS: [id number] RIGHT UPPER QUADRANT ULTRASOUND HISTORY: R16.0 - Hepatomegaly, not elsewhere classified COMPARISON: CT 10/21/2021 and prior gallbladder ultrasound 05/11/2021 Liver: 14.1 cm in length. Normal size liver. No bile duct dilatation or mass. Portal Vein: Normal hepatopetal flow with monophasic waveform. Gallbladder: Prior cholecystectomy. CBD: 0.5 cm Pancreas: Normal size and echogenicity. Right kidney: 9.6 cm in length. Normal size and echogenicity. No hydronephrosis or mass. Aorta and IVC: Unremarkable abdominal aorta and IVC. No ascites. US/US liver [id number] IMPRESSION: 1. Prior cholecystectomy. 2. Normal liver. No evidence for hepatic steatosis or hepatomegaly today.
== END 2022-10-02 06:51 | disposition home or self-care (01) ==
LOC: RAD 06:53
PROVIDERS: PCP Registered Nurse; Visit Provider Registered Nurse
DX: R16.0 Hepatomegaly, not elsewhere classified (principal)
CPT/HCPCS: 76705

== ENCOUNTER 2022-10-31 15:39 | Emergency (ER) | payer OTHER, SELFPAY | END 2022-10-31 15:44 | disposition home or self-care (01) | PROVIDERS: Emergency Provider Family Medicine; PCP Registered Nurse | DX: R19.09 Other intra-abdominal and pelvic swelling, mass and lump (principal) | CPT/HCPCS: 76830; 76857 ==

== ENCOUNTER 2022-10-31 15:50 | Emergency (ER) | payer OTHER, SELFPAY ==
[2022-10-31 16:14] VITALS: BP 141/87; PULSE 69; RESP 16; TEMP 36.7; O2SAT 96; BMI 19.8
--- NOTE | 2022-10-31 17:30 | CTR_ITS ---
PROCEDURE INFORMATION: Exam: CT Abdomen And Pelvis With Contrast Exam date and time: 10/31/2022 5:54 PM Age: 57 years old Clinical indication: Abdominal pain; Localized; Lower; Prior surgery; Additional info: Suspicion for pelvic abscess TECHNIQUE: Imaging protocol: Computed tomography of the abdomen and pelvis with contrast. Radiation optimization: All CT scans at this facility use at least one of these dose optimization techniques: automated exposure control; mA and/or kV adjustment per patient size (includes targeted exams where dose is matched to clinical indication); or iterative reconstruction. Contrast material: OMNI 350; Contrast volume: 100 ml; Contrast route: INTRAVENOUS (IV); COMPARISON: CT abdomen pelvis w con* [id number] 10/21/2021 9:15 AM RADIATION DOSE METRICS: Total DLP (mGy-cm): 329.48 FINDINGS: Lungs: The lung bases appear unremarkable. Liver: The liver is unremarkable in appearance. Gallbladder and bile ducts: The gallbladder is surgically absent. The gallbladder is surgically absent. Pancreas: The pancreas is normal in appearance. No pancreatic duct dilatation. Spleen: The spleen is normal in size and appearance. Adrenal glands: The adrenal glands appear within normal limits. Kidneys and ureters: Cortical scarring of the kidneys. No renal cyst or mass. No hydronephrosis. Stomach and bowel: No acute gastric abnormality demonstrated. The small bowel is unremarkable as demonstrated. Excessive retained stool noted in the colon, suggesting constipation. Appendix: No evidence of appendicitis. Intraperitoneal space: No pneumoperitoneum. No significant fluid collection. Vasculature: The aorta is atherosclerotic. No aortic aneurysm. Lymph nodes: No pathologically enlarged lymph nodes are demonstrated. Urinary bladder: Unremarkable as visualized. Reproductive: The uterus is not visualized, consistent with hysterectomy. Bones/joints: No acute fracture or other acute osseous abnormality. Mild degenerative spine changes are noted. Soft tissues: Unremarkable. CT/CT abdomen pelvis w con* [id number] IMPRESSION: 1. No abnormal fluid collection demonstrated in the abdomen or pelvis. 2. Cortical scarring of the bilateral kidneys, unchanged. 3. Excessive retained stool noted in the colon, suggesting constipation. This appears new when compared to 10/21/2021
[2022-10-31] MEDS: iohexol 350 mg/mL 500 mL Btl (per mL) IV (17:59)
--- NOTE | 2022-10-31 18:07 | ED_ITS ---
Documented by User: PETE Hernández 10/31/22 20:24 HPI - Female Genitourinary General: Chief complaint: Urogenital-Female Stated complaint: sent for ct by albert Time Seen by Provider: 10/31/22 17:26 History of Present Illness: Patient is a 57-year-old female that presents to the emergency department with complaints of vaginal pain, chilling, nominal pain. She underwent a transvaginal ultrasound today at the request of Dr. Ventura. Patient was sent to the emergency department due to abnormal finding. Reviewing the ultrasound, it is suspected the patient has a vaginal or perineal abscess. Patient denies any vaginal discharge or bleeding. She does have vaginal pain. She also reports fever and chills During the exam today, patient developed pretty significant abdominal pain. History of vaginal pain x2 months. Patient underwent vaginal repair with Dr. Ventura 2 months ago after sustaining vaginal lacerations from vaginal penetration. Since that time she has been examined. Has been on antibiotics for 2 weeks. Patient is currently well-appearing but does have a tender abdomen Associated symptoms: Reports abdominal pain; Deny headache(s) or nausea Review of Systems General: Reports: 10 or more systems reviewed and unremarkable except in HPI and below Const: Denies: fever(s), chills, change in appetite, change in weight, fatigue or malaise Eyes: Denies: change in vision, eye discomfort, eye discharge or eye redness ENMT: Denies: throat pain, enlarged tonsils, odynophagia, hoarseness, ear or mastoid pain, ear discharge, change in hearing, tinnitus, nasal discharge, nasal congestion, post nasal drip or sinus pain Card: Denies: chest pain, palpitations, irregular heart rhythm, edema, dyspnea on exertion, orthopnea or leg pain with exertion Resp: Denies: dyspnea, productive cough, non-productive cough, wheezing, stridor or chest congestion GI: Reports: abdominal pain; Denies: nausea, vomiting, dysphagia, diarrhea, constipation, bloating, GI cramping or hematochezia : Denies: flank pain, difficulty voiding, dysuria, urinary frequency, urinary urgency, urinary hesitancy, oliguria or hematuria Musc: Denies: neck pain, back pain, extremity pain, joint pain, joint swelling, joint redness, joint warmth or muscle weakness Skin/Breast: Denies: rash, pruritus, erythema, photosensitivity or new lesions Neuro: Denies: headache(s), numbness in extremities, weakness in extremities, sensory changes, lack of coordination, difficulty walking, frequent falls, dizziness, confusion, Slurred speech present, difficulty communicating thoughts, seizure-like activity or involuntary movements Psych: Reports: anxiety Endo: Denies: polyuria, polydipsia or tired all the time Flip/Lymph: Denies: easy bruising or easy bleeding PFSH ED PFSH: Medical History (Updated 10/31/22 @ 20:19 by PETE Hernández) Colon polyp Depression with anxiety Essential hypertension Family History (Updated 09/15/22 @ 08:23 by Effie Taylor RN) Mother Stroke Other Heart disease Denies family history of Colon cancer Ovarian cancer Diabetes Clotting disorder Hyperlipidemia Breast cancer Anesthesia complication Bleeding disorder Hypertension Uterine cancer Thyroid condition Social History Smoking and tobacco status: current every day smoker cigarettes Packs smoked per day: 1 Second hand smoke exposure: Yes Physical Exam Const: COMMON NORMALS: no acute distress, patient oriented x3 and healthy appearing GENERAL APPEARANCE: cooperative and comfortable; not in distress HENMT: COMMON NORMALS: normocephalic, atraumatic and hearing grossly normal bilaterally HEAD & SCALP: normal to inspection, normocephalic and atraumatic FACE & SINUS: face symmetric MOUTH: Normal oral and palatal mucosa present, lip normal and tongue normal Eye: COMMON NORMALS: Equal, round and reactive pupils present and EOMs intact bilaterally PUPIL: Yes Equal, round and reactive pupils present Neck/C-Spine: COMMON NORMALS: full ROM and supple GENERAL: Yes normal visual inspection CERVICAL SPINE: Yes cervical ROM normal Lymph: LYMPHATIC: no lymphadenopathy noted Chest: COMMONS NORMALS: normal inspection of the chest Breast/axilla inspection: Yes no chest deformity, asymmetry, normal contours, no nodules, masses, tenderness Resp: COMMON NORMALS: normal respiratory effort, No retractions, No use of accessory muscles and clear to auscultation bilaterally EFFORT & INSPECTION: Yes able to speak in complete sentences, Yes symmetric chest movement, No abnormal respiratory pattern and No respiratory distress AUSCULTATION: clear to auscultation bilaterally Cardio: COMMON NORMALS: regular rate, regular rhythm and Peripheral pulses 2+ throughout RATE: regular rate RHYTHM: regular rhythm PERIPHERAL PULSES: Peripheral pulses 2+ throughout GI: COMMON NORMALS: Normal to inspection, nondistended, normoactive bowel sounds present and Soft to palpation INSPECTION: Yes normal to inspection PALPATION: Yes Soft to palpation : COMMON NORMALS: Yes no CVA tenderness BLADDER/KIDNEY EXAM: Yes no CVA tenderness SPECULUM EXAM - VAGINA: Yes swelling, Yes tenderness Lateral vaginal tenderness details: bilateral and Yes other OTHER: Vaginal exam was performed using a speculum as well as a bimanual exam. No areas of fluctuance or induration. No abscess or mass appreciated Tissue of the vagina is very swollen and tender with exam Back/Pelvis: COMMON NORMALS: no CVA tenderness, thoracic and lumbar spine normal to inspection and no thoracic nor lumbar tenderness Extremity: COMMON NORMALS: normal to inspection, full ROM and capillary refill normal GENERAL: Yes normal exam except as noted Neuro: COMMON NORMALS: patient oriented x3 Psych: COMMON NORMALS: mental status grossly normal, Normal thought process present, cooperative, normal affect, speech normal and activity/motor behavior normal SPEECH: Yes normal speech THOUGHT PROCESS: Normal thought process present Skin: COMMON NORMALS: no rashes or lesions noted and no wounds GENERAL SKIN EXAM: no rashes or lesions noted Course Vital Signs: Vital signs: Vital Signs Temperature 98.1 F 10/31/22 16:14 Pulse Rate 63 10/31/22 20:00 Respiratory Rate 16 10/31/22 20:44 Blood Pressure 146/76 10/31/22 20:00 Pulse Oximetry 99 10/31/22 20:44 Oxygen Delivery Me thod 10/31/22 20:00 MDM - Female Medical Decision Making Patient arrives in the emergency department at the request of Dr. Ventura. Patient underwent ultrasound today. Imaging reveals peritoneal mass suspicious of abscess. Differential diagnosis includes hemorrhage, abscess, retained foreign body Here in the emergency department I obtained laboratory studies that included CBC, CMP, PT/INR, type and screen. Also obtained a CT abdomen pelvis with contrast. CT abdomen pelvis reveals: IMPRESSION: 1. No abnormal fluid collection demonstrated in the abdomen or pelvis. 2. Cortical scarring of the bilateral kidneys, unchanged. 3. Excessive retained stool noted in the colon, suggesting constipation. Speculum exam as well as bimanual completed. No observable abscess or mass. Soft tissue of the vagina is edematous. I spoke with Dr. Naz Reeves. Reviewed diagnostic findings as well as patient's exam. It is felt that the patient can be treated outpatient. She can follow-up with Dr. Ventura on Thursday as planned Patient will start Flagyl here in the emergency department and will pickle cutter her prescription tomorrow. She is to take Flagyl 500 mg p.o. twice daily x7 days. Patient's pain was treated here in the emergency department with Toradol. I will send her home with a 5-day course of Toradol. Patient is to return to the emergency department for new, concerning, worsening symptoms. Questions sought and answered Lab Data 10/31/22 17:35 10/31/22 17:35 Radiology Impressions Abdomen/Pelvis CT 10/31/22 17:30 IMPRESSION: 1. No abnormal fluid collection demonstrated in the abdomen or pelvis. 2. Cortical scarring of the bilateral kidneys, unchanged. 3. Excessive retained stool noted in the colon, suggesting constipation. This appears new when compared to 10/21/2021 Laboratory Results WBC 8.4 10^3/uL (4.0-10.0) 10/31/22 17:35 RBC 5.15 10^6/uL (4.1-5.3) 10/31/22 17:35 Hgb 15.4 g/dL (11.5-15.3) H 10/31/22 17:35 Hct 46.1 % (37.0-47.0) 10/31/22 17:35 MCV 89.5 fl (81-99) 10/31/22 17:35 MCH 29.9 pg (28.0-34.0) 10/31/22 17:35 MCHC 33.4 g/dL (30.0-36.0) 10/31/22 17:35 RDW 13.1 % (12.1-15.1) 10/31/22 17:35 Plt Count 266 10^3/cmm (130-400) 10/31/22 17:35 MPV 9.9 fL (7.4-10.4) 10/31/22 17:35 Neut % (Auto) 53.3 % 10/31/22 17:35 Lymph % (Auto) 39.1 % 10/31/22 17:35 [place]verse % (Auto) 6.0 % 10/31/22 17:35 Eos % (Auto) 0.7 % 10/31/22 17:35 Baso % (Auto) 0.7 % 10/31/22 17:35 Neut # (Auto) 4.45 10^3/uL (1.8-7.7) 10/31/22 17:35 Lymph # (Auto) 3.3 10^3/uL (0.8-4.8) 10/31/22 17:35 [place] # (Auto) 0.5 10^3/uL (0.2-0.9) 10/31/22 17:35 Eos # (Auto) 0.1 10^3/uL (0.0-0.8) 10/31/22 17:35 Baso # (Auto) 0.1 10^3/uL (0.0-0.1) 10/31/22 17:35 Nucleated RBC % (auto) 0 % 10/31/22 17:35 Nucleated RBCs # 0.0 /100WBC 10/31/22 17:35 PT 12.30 SECONDS (12.1-14.9) 10/31/22 17:35 INR 0.88 (0.8-1.2) 10/31/22 17:35 Sodium 138 mmol/L (136-145) 10/31/22 17:35 Potassium 3.9 mmol/L (3.5-5.1) 10/31/22 17:35 Chloride 105 mmol/L (98-107) 10/31/22 17:35 Carbon Dioxide 21 mmol/L (22-29) L 10/31/22 17:35 Anion Gap 15.9 (5-19) 10/31/22 17:35 BUN 17 mg/dL (6-20) 10/31/22 17:35 Creatinine 1.0 mg/dL (0.5-0.9) H 10/31/22 17:35 GFR Calculation 57.1 mL/min (90-130) L 10/31/22 17:35 Glucose 88 mg/dL (65-115) 10/31/22 17:35 Calculated Osmolality 287 mOsm/kg (285-295) 10/31/22 17:35 Calcium 9.4 mg/dL (8.5-10.5) 10/31/22 17:35 Total Bilirubin 0.4 mg/dL (0.15-1.2) 10/31/22 17:35 AST 14 U/L (0-32) 10/31/22 17:35 ALT 18 U/L (0-33) 10/31/22 17:35 Alkaline Phosphatase 88 U/L (35-105) 10/31/22 17:35 Total Protein 7.9 g/dL (6.6-8.7) 10/31/22 17:35 Albumin 4.8 g/dL (3.5-5.2) 10/31/22 17:35 Globulin 3.1 g/dL (1.3-4.6) 10/31/22 17:35 Urine Color Yellow (Yellow) 10/31/22 18:32 Urine Appearance Clear (CLEAR) 10/31/22 18:32 Urine pH 5 (5-7) 10/31/22 18:32 Ur Specific Metaline 1.020 (1.005-1.030) 10/31/22 18:32 Urine Protein Neg (Negative) 10/31/22 18:32 Urine Glucose (UA) Norm (Normal) 10/31/22 18:32 Urine Ketones Negative (Negative) 10/31/22 18:32 Urine Blood Neg (Negative) 10/31/22 18:32 Urine Nitrate Negative (Negative) 10/31/22 18:32 Urine Bilirubin Neg (Negative) 10/31/22 18:32 Urine Urobilinogen Norm mg/dL (Negative) 10/31/22 18:32 Ur Leukocyte Esterase Negative (Negative) 10/31/22 18:32 Blood Type O Positive 10/31/22 17:35 Rho(D) Type Positive 10/31/22 17:35 Antibody Screen Negative 10/31/22 17:35 Discharge Plan Discharge Patient Disposition: Home Clinical Impression: Vaginal pain Condition: Stable Prescriptions: New metronidazole 500 mg tablet 500 mg PO BID 7 Days Qty: 14 0RF ketorolac 10 mg tablet 10 mg PO Q8H PRN (Reason: pain) 5 Days Qty: 15 0RF No Action telmisartan 80 mg tablet 80 mg PO DAILY 90 Days Qty: 90 0RF buspirone 10 mg tablet 10 mg PO TID 30 Days Qty: 90 2RF ibuprofen 800 mg tablet 800 mg PO TID PRN (Reason: pain) Qty: 60 0RF acetaminophen 325 mg capsule 325 mg PO Q4H PRN (Reason: fever or pain) Qty: 60 0RF Discharge Orders: Discharge ED (Routine); Ordered 10/31/22 Ordered By: Nan Puckett Referrals: Joe Ventura MD [Physician] - Lulu Vidal FNP [Primary Care Provider] - Discharge Diet: Advance as tolerated Discharge Activity: Resume usual activity Patient Instructions: Abdominal Pain - Adult, Metronidazole (By mouth), Constipation (ED), Opioid Safety, Pain Management Coding Level of Care Code ED Command And Control Specialist for Chg Fwd Exam Comprehensive Medical Decision Making Low Complexity Documented by User: Luis Watson DO 11/01/22 08:24 HPI - Female Genitourinary General: Chief complaint: Urogenital-Female Stated complaint: sent for ct by albert Time Seen by Provider: 10/31/22 17:26 [facility] ED PFSH: Medical History (Updated 10/31/22 @ 20:19 by PETE Hernández) Colon polyp Depression with anxiety Essential hypertension Family History (Updated 09/15/22 @ 08:23 by Effie Taylor RN) Mother Stroke Other Heart disease Denies family history of Colon cancer Ovarian cancer Diabetes Clotting disorder Hyperlipidemia Breast cancer Anesthesia complication Bleeding disorder Hypertension Uterine cancer Thyroid condition Social History Smoking and tobacco status: current every day smoker cigarettes Packs smoked per day: 1 Second hand smoke exposure: Yes Course Vital Signs: Vital signs: Vital Signs Temperature 98.1 F 10/31/22 16:14 Pulse Rate 63 10/31/22 20:00 Respiratory Rate 16 10/31/22 20:44 Blood Pressure 146/76 10/31/22 20:00 Pulse Oximetry 99 10/31/22 20:44 Oxygen Delivery Me thod 10/31/22 20:00 MDM - Female Medical Decision Making Patient arrives in the emergency department at the request of Dr. Ventura. Patient underwent ultrasound today. Imaging reveals peritoneal mass suspicious of abscess. Differential diagnosis includes hemorrhage, abscess, retained foreign body Here in the emergency department I obtained laboratory studies that included CBC, CMP, PT/INR, type and screen. Also obtained a CT abdomen pelvis with contrast. CT abdomen pelvis reveals: IMPRESSION: 1. No abnormal fluid collection demonstrated in the abdomen or pelvis. 2. Cortical scarring of the bilateral kidneys, unchanged. 3. Excessive retained stool noted in the colon, suggesting constipation. Speculum exam as well as bimanual completed. No observable abscess or mass. Soft tissue of the vagina is edematous. I spoke with Dr. Naz Reeves. Reviewed diagnostic findings as well as patient's exam. It is felt that the patient can be treated outpatient. She can follow-up with Dr. Ventura on Thursday as planned Patient will start Flagyl here in the emergency department and will pickle cutter her prescription tomorrow. She is to take Flagyl 500 mg p.o. twice daily x7 days. Patient's pain was treated here in the emergency department with Toradol. I will send her home with a 5-day course of Toradol. Patient is to return to the emergency department for new, concerning, worsening symptoms. Questions sought and answered Chart reviewed and patient discussed with midlevel. Agree with assessment and plan. Lab Data 10/31/22 17:35 10/31/22 17:35 Radiology Impressions Abdomen/Pelvis CT 10/31/22 17:30
[2022-10-31 18:08] LABS: Basophils # 0.1 10^3/uL (0.0-0.1); Basophils % 0.7 %; Eosinophils # 0.1 10^3/uL (0.0-0.8); Eosinophils % 0.7 %; Hematocrit 46.1 % (37.0-47.0); Hemoglobin 15.4 g/dL (11.5-15.3); Lymphocytes # 3.3 10^3/uL (0.8-4.8); Lymphocytes % 39.1 %; Mean Corpuscular HGB Conc 33.4 g/dL (30.0-36.0); Mean Corpuscular Hemoglobin 29.9 pg (28.0-34.0); Mean Corpuscular Volume 89.5 fl (81-99); Mean Platelet Volume 9.9 fL (7.4-10.4); Monocytes # 0.5 10^3/uL (0.2-0.9); Neutrophils # 4.45 10^3/uL (1.8-7.7); Neutrophils % 53.3 %; Nucleated Red Blood Cells % 0 %; Platelet Count 266 10^3/cmm (130-400); Red Blood Count 5.15 10^6/uL (4.1-5.3); Red Cell Distribution Width 13.1 % (12.1-15.1); White Blood Count 8.4 10^3/uL (4.0-10.0)
[2022-10-31 18:33] LABS: Alanine Aminotransferase 18 U/L (0-33); Albumin Level 4.8 g/dL (3.5-5.2); Alkaline Phosphatase 88 U/L (35-105); Anion Gap 15.9 (5-19); Aspartate Amino Transferase 14 U/L (0-32); Blood Urea Nitrogen 17 mg/dL (6-20); Calcium 9.4 mg/dL (8.5-10.5); Carbon Dioxide 21 mmol/L (22-29); Chloride 105 mmol/L (98-107); Globulin 3.1 g/dL (1.3-4.6); Glomerular Filtration Rate 57.1 mL/min (90-130); Glucose 88 mg/dL (65-115); Osmolality Calculated 287 mOsm/kg (285-295); Potassium 3.9 mmol/L (3.5-5.1); Sodium 138 mmol/L (136-145); Total Bilirubin 0.4 mg/dL (0.15-1.2); Total Protein 7.9 g/dL (6.6-8.7)
[2022-10-31 18:39] LABS: INR 0.88 (0.8-1.2)
[2022-10-31 18:46] VITALS: BP 133/89; O2SAT 96
[2022-10-31 20:00] VITALS: BP 146/76; PULSE 63; RESP 16; O2SAT 96
[2022-10-31 20:11] LABS: Add Urine Microscopic? NO; Charge for UA Resulting for Rev
[2022-10-31 20:14] LABS: Bilirubin Urine Neg (Negative); Blood Urine Neg (Negative); Glucose Urine UA Norm (Normal); Ketones Urine Negative (Negative); Nitrate Urine Negative (Negative); Protein Urine Neg (Negative); Urine Appearance Clear (CLEAR); Urine Color Yellow (Yellow); Urobilinogen Urine Norm (Negative); pH Urine 5 (5-7)
[2022-10-31 20:15] LABS: Leukocyte Esterase Urine Negative (Negative)
[2022-10-31] MEDS: ketorolac 30 mg/mL INJ IVP (20:36)
[2022-10-31] MEDS: metroNIDAZOLE 500 MG Tablet PO (20:36)
[2022-10-31 20:44] VITALS: RESP 16; O2SAT 99
== END 2022-10-31 20:45 | disposition home or self-care (01) ==
PROVIDERS: Emergency Provider Nurse Practitioner; PCP Registered Nurse
DX: R10.2 Pelvic and perineal pain (principal); I10 Essential (primary) hypertension; F17.210 Nicotine dependence, cigarettes, uncomplicated
CPT/HCPCS: 74177; 80053; 81003; 85025; 85610; 86850; 86900; 99285; J1885; Q9967

== ENCOUNTER 2022-11-05 08:40 | Day surgery (SDC) | payer OTHER, SELFPAY ==
[2022-11-04 13:01] VITALS: BMI 20.5
--- NOTE | 2022-11-04 13:09 | P.ANESASSM_ITS ---
Pre-Anesthetic Assessment Height/Weight: Height 1.63 m Weight 54.431 kg Preop Diagnosis: Blood in stool Operation Date: 11/05/22 11:00 Proposed Procedures p Incision and drainage of vaginal cuff abscess N73.9 50716(Not Applicable) - Joe Ventura MD Familial anesthetic complications: NOne Social Tobacco and No alcohol Exam alert, oriented x 3, clear to auscultation bilaterally and regular rate & rhythm Airway Mallampati: Class II Dentition: other (missing) CV/HEM Hypertension None reported Hepatic None reported GI gastritits Metabolic None reported Anesthetic Plan ASA status: 2 Anesthesia: General Risk of > 500 ml blood loss (7ml/kg in children): No Medications/Allergies Home Medications Medication Instructions Recorded Confirmed Last Taken Type buspirone 10 mg tablet 10 mg PO TID 30 days #90 tabs 07/29/22 11/04/22 11/03/22 Rx telmisartan 80 mg tablet 80 mg PO DAILY 90 days #90 tabs 07/29/22 11/04/22 11/04/22 Rx metronidazole 500 mg tablet 500 mg PO BID 7 days #14 tabs 10/31/22 11/04/22 11/04/22 Rx Allergies Allergy/AdvReac Type Severity Reaction Status Date / Time No Known Allergies Allergy Verified 11/04/22 12:57 [facility] Anesthesia Medical History (Updated 11/04/22 @ 11:48 by Joe Ventura MD) Colon polyp Depression with anxiety Essential hypertension Family History (Updated 09/15/22 @ 08:23 by Effie Taylor RN) Mother Stroke Other Heart disease Denies family history of Colon cancer Ovarian cancer Diabetes Clotting disorder Hyperlipidemia Breast cancer Anesthesia complication Bleeding disorder Hypertension Uterine cancer Thyroid condition Data Anesthesia Cardiac Studies: No Data to Display
[2022-11-05] VITALS (9 sets, daily range): BP systolic 94–110; BP diastolic 55–76; PULSE 65–78; RESP 14–18; TEMP 36.2–36.6; O2SAT 94–99
--- NOTE | 2022-11-05 09:05 | P.ANESUD_ITS ---
Pre-Anesthetic Update Pre-Anesthetic Assessment: Date of Surgery/Procedure: 11/05/22 Preop Magnolia gnosis: Pelvic pain Proposed Procedure: Operation Date: 11/05/22 10:50 Proposed Procedures p Laparoscopy(Not Applicable) - Joe Ventura MD Any changes to Pre-Anesthetic Assessment?: No Exam: Pre-Anes Outpt Exam: alert, oriented x 3, clear to auscultation bilaterally and regular rate & rhythm Cardiac Studies: No Data to Display
--- NOTE | 2022-11-05 09:16 | W.PM.OPSUD ---
Surgery/Procedure H&P Update DATE OF PROCEDURE: November 05, 2022 DATE H&P PERFORMED: 11/04/22 H&P UPDATE INFORMATION: I have reviewed H&P completed within last 30 days, I have examined patient prior to procedure and No changes to prior documentation PREOP DIAGNOSIS: Pelvic pain PLANNED PROCEDURE: Operation Date: 11/05/22 10:50 Proposed Procedures p Laparoscopy(Not Applicable) - Joe Ventura MD
[2022-11-05] MEDS: sodium chloride 0.9% 1,000 ML 30 ML IV (09:25)
[2022-11-05] MEDS: scopolamine 1.5 Patch 1 PATCH TRANSDERMA (09:27)
[2022-11-05 09:53] LABS: Basophils # 0.1 10^3/uL (0.0-0.1); Basophils % 1.1 %; Eosinophils # 0.1 10^3/uL (0.0-0.8); Eosinophils % 2.1 %; Hematocrit 44.2 % (37.0-47.0); Hemoglobin 14.6 g/dL (11.5-15.3); Lymphocytes # 2.5 10^3/uL (0.8-4.8); Lymphocytes % 37.7 %; Mean Corpuscular Hemoglobin 29.4 pg (28.0-34.0); Mean Corpuscular Volume 89.1 fl (81-99); Mean Platelet Volume 9.7 fL (7.4-10.4); Monocytes # 0.4 10^3/uL (0.2-0.9); Neutrophils # 3.47 10^3/uL (1.8-7.7); Neutrophils % 52.9 %; Nucleated Red Blood Cells % 0 %; Platelet Count 250 10^3/cmm (130-400); Red Blood Count 4.96 10^6/uL (4.1-5.3); Red Cell Distribution Width 13.1 % (12.1-15.1); White Blood Count 6.6 10^3/uL (4.0-10.0)
[2022-11-05 10:17] LABS: Alanine Aminotransferase 27 U/L (0-33); Albumin Level 4.5 g/dL (3.5-5.2); Alkaline Phosphatase 73 U/L (35-105); Aspartate Amino Transferase 23 U/L (0-32); Blood Urea Nitrogen 17 mg/dL (6-20); Calcium 8.8 mg/dL (8.5-10.5); Carbon Dioxide 21 mmol/L (22-29); Chloride 108 mmol/L (98-107); Globulin 2.1 g/dL (1.3-4.6); Glomerular Filtration Rate 73.9 mL/min (90-130); Glucose 88 mg/dL (65-115); Osmolality Calculated 291 mOsm/kg (285-295); Sodium 140 mmol/L (136-145); Total Bilirubin 0.3 mg/dL (0.15-1.2); Total Protein 6.6 g/dL (6.6-8.7)
[2022-11-05 10:18] LABS: Anion Gap 15.5 (5-19); Potassium 4.5 mmol/L (3.5-5.1)
[2022-11-05 10:24] LABS: Add Urine Microscopic? NO; Charge for UA Resulting for Rev
[2022-11-05 10:28] LABS: Urine Color Yellow (Yellow)
[2022-11-05 10:29] LABS: Bilirubin Urine Neg (Negative); Blood Urine Neg (Negative); Glucose Urine UA Norm (Normal); Ketones Urine Negative (Negative); Leukocyte Esterase Urine Negative (Negative); Nitrate Urine Negative (Negative); Protein Urine Neg (Negative); Urine Appearance Clear (CLEAR); Urobilinogen Urine Norm (Negative); pH Urine 6 (5-7)
[2022-11-05] MEDS: ceFAZolin 2,000 MG in sodium chloride 0.9% (plus) 50 ML 100 MG IV (11:14)
--- NOTE | 2022-11-05 12:21 | P.OP_ITS ---
Operative Report Date of procedure: November 05, 2022 Pre-op diagnosis: Preop Diagnosis Pelvic pain Post-op diagnosis: Pelvic pain Pelvic adhesions Post-op findings: Adhesions in the pelvic wall Right upper quadrant omental adhesions to anterior abdominal wall Procedure done: Diagnostic laparoscopy. Lysis of adhesions. Specimens removed/disposition: None Surgeon: Joe Ventura MD Estimated blood loss (mL): 5 IV fluids (mL): 800 Urine output (mL): 50 Procedure: After informed consent, the patient was taken to the operating room where general anesthesia was administered. The patient was examined under anesthesia and found to have a normal uterus with normal adnexa. She was placed in the dorsal lithotomy position and prepped and draped in sterile fashion. Pre- Procedure Time-Out verifying the correct patient identity, correct procedure verified with consent, correct site and side, correct patient position, availability of correct implants and any special equipment or requirements was performed and acknowledge by the OR team. A sponge stick was inserted in the vagina and secured to drapes with towel clamp. The attention directed to abdomen after changing gloves. An intraumbilical incision was made with a scalpel. While tenting up on the abdomen, a Verres needle with sleeve was admitted into the intra-abdominal cavity. A saline drop test was performed and noted to be within normal limits. Pneumoperitoneum was attained with 4 liters of carbon dioxide. The Verres needle was removed. A 5 mm trocar and sleeve were admitted into the abdomen and laparoscopic confirmation of location was achieved, A second incision was made 3 cm above the symphysis pubis, and a 5 mm trocar and sleeve were admitted into the abdomen under direct, laparoscopic visualization without complication. A survey revealed normal abdominal anatomy but omental adhesions in the right upper quadrant were noted. The pelvic survey shows omental and filmy bowel adhesions to the vaginal cuff. A 5 mm blunt probe was advanced through the second trocar sleeve, and light manipulation of bowel to assess the posterior aspects was performed. Adhesions were lysed with the Enseal device and sharp with laparoscopic scissors. No bleeding was noted. The carbon dioxide was allowed to escape from the abdomen. The instruments were removed, and skin cover with a 3-0 Vicryl and Dermabond. The sponge stick was removed from the vagina, and excellent hemostasis was noted. The patient tolerated the procedure well, and sponge, lap and needle count were correct times two. The patient taken to the recovery room in good condition.
[2022-11-05] MEDS: ondansetron 2 mg/ML SDV 2 mL 4 MG IVP (12:44)
--- NOTE | 2022-11-05 13:38 | ANE.PACU2 ---
Inpatient post-anesthesia follow up: Airway intact: Yes Vital signs: Temperature 98 F Pulse Rate 65 Respiratory Rate 18 Blood Pressure 101/69 Pulse Oximetry 95 Oxygen Delivery Me thod Room Air Oxygen Flow Rate 6 Fraction of Inspir ed Oxygen Hydration adequate: Yes Nausea and vomiting: No Pain level: 1 Mental status: Baseline
== END 2022-11-05 14:10 | disposition home or self-care (01) ==
PROVIDERS: PCP Registered Nurse; Visit Provider Obstetrics & Gynecology
PROC: (CPT 49320; principal; 2022-11-05 10:40)
DX: R10.2 Pelvic and perineal pain (principal); N73.6 Female pelvic peritoneal adhesions (postinfective); I10 Essential (primary) hypertension; F17.210 Nicotine dependence, cigarettes, uncomplicated
CPT/HCPCS: 49320; 36415; 80053; 81003; 85025; 86850; 86900; J0131; J0690; J1100; J1170; J2250; J2405; J2704; J2710; J3010; J3490; J7030

== ENCOUNTER 2022-12-17 09:13 | Day surgery (SDC) | payer OTHER, SELFPAY ==
[2022-12-16 12:12] VITALS: BMI 20.5
[2022-12-17 09:46] VITALS: BP 137/91; PULSE 83; RESP 16; TEMP 36.8; O2SAT 96
[2022-12-17] MEDS: sodium chloride 0.9% 1,000 ML 30 ML IV (09:56)
--- NOTE | 2022-12-17 10:40 | ANES.PREANE2 ---
Pre-Anesthetic Assessment Height/Weight: Height 1.63 m Weight 54.431 kg Temp Pulse Resp BP Pulse Ox O2 Del Method 98.3 F 83 16 137/91 96 12/17/22 09:46 12/17/22 09:46 12/17/22 09:46 12/17/22 09:46 12/17/22 09:46 12/17/22 09:46 Preop Diagnosis: abdominal pain Operation Date: 12/17/22 11:00 Proposed Procedures p EGD 47198,R10.9(Not Applicable) - Chase Christiansen DO Familial anesthetic complications: none Was Beta Estuardo taken within 24 hours: N/A Was Clonidine taken within 24 hours: N/A Last intake: Intake Last Liquid Date 12/16/22 Last Liquid Time 21:00 Last Solid Date 12/16/22 Last Solid Time 17:30 Social Tobacco and No alcohol 1 pack(s) per day Exam alert, oriented x 3, clear to auscultation bilaterally and regular rate & rhythm Airway Submandibular: within normal limits Cervical ROM: within normal limits Mallampati: Class I Dentition: full Pulmonary Chronic Obstructive Pulmonary Disease and Shortness of Breath CV/HEM Hypertension None reported Hepatic None reported GI None reported Metabolic None reported Musc/skel None reported Neuropsych Anxiety Anesthetic Plan ASA status: 2 Anesthesia: MAC Risk of > 500 ml blood loss (7ml/kg in children): No Medications/Allergies Home Medications Medication Instructions Recorded Confirmed Last Taken Type buspirone 10 mg tablet 10 mg PO TID 30 days #90 tabs 07/29/22 12/16/22 12/16/22 Rx pantoprazole 40 mg tablet,delayed 40 mg PO BID 6 weeks #84 tabs 12/16/22 12/16/22 Unknown Rx release (Protonix) telmisartan 80 mg tablet 80 mg PO DAILY 12/16/22 12/16/22 12/16/22 History Allergies Allergy/AdvReac Type Severity Reaction Status Date / Time No Known Allergies Allergy Verified 12/17/22 09:45 Current Medications Generic Name Dose Route Start Last Admin Trade Name Freq PRN Reason Stop Dose Admin Sodium Chloride 1,000 mls @ 30 mls/hr 12/17/22 09:45 12/17/22 09:56 Sodium Chloride 0.9% IV 12/18/22 09:44 30 mls/hr .Q24H PATRICK Administration PFSH Anesthesia Medical History Colon polyp Depression with anxiety Essential hypertension Surgical History H/O vaginal surgery 08/31/2022- Vaginal cuff laceration repair performed on 08/31/2022. History of cholecystectomy lap-2020 History of esophagogastroduodenoscopy (EGD) History of hysterectomy Hx of colonoscopy S/P tonsillectomy Family History Mother Stroke Other Heart disease Denies family history of Colon cancer Ovarian cancer Diabetes Clotting disorder Hyperlipidemia Breast cancer Anesthesia complication Bleeding disorder Hypertension Uterine cancer Thyroid condition Social History Smoking and tobacco status: current every day smoker cigarettes Data Anesthesia Cardiac Studies: No Data to Display
--- NOTE | 2022-12-17 11:58 | W.PM.OPSUD ---
Surgery/Procedure H&P Update DATE OF PROCEDURE: December 17, 2022 DATE H&P PERFORMED: 12/16/22 H&P UPDATE INFORMATION: I have reviewed H&P completed within last 30 days, I have examined patient prior to procedure and No changes to prior documentation PREOP DIAGNOSIS: abdominal pain PLANNED PROCEDURE: Operation Date: 12/17/22 11:00 Proposed Procedures p EGD 95042,R10.9(Not Applicable) - Chase Christiansen DO
[2022-12-17 12:09] VITALS: BP 109/75; PULSE 67; RESP 18; TEMP 36.2; O2SAT 95
[2022-12-17 12:24] VITALS: BP 123/86; PULSE 74; RESP 18; O2SAT 95
--- NOTE | 2022-12-17 13:59 | ANE.PACU2 ---
Inpatient post-anesthesia follow up: Airway intact: Yes Vital signs: Temperature 97.1 F Pulse Rate 74 Respiratory Rate 18 Blood Pressure 123/86 Pulse Oximetry 95 Oxygen Delivery Me thod Room Air Oxygen Flow Rate Fraction of Inspir ed Oxygen Hydration adequate: Yes Nausea and vomiting: No Pain level: 1 Mental status: Baseline
== END 2022-12-17 12:29 | disposition home or self-care (01) ==
PROVIDERS: PCP Registered Nurse; Visit Provider Surgery
PROC: 0DJ08ZZ Inspection of Upper Intestinal Tract, Via Natural or Artificial Opening Endoscopic (ICD-10-PCS; CPT 43235; principal; 2022-12-17 11:00)
DX: R10.9 Unspecified abdominal pain (principal); K29.50 Unspecified chronic gastritis without bleeding; J44.9 Chronic obstructive pulmonary disease, unspecified; I10 Essential (primary) hypertension; F17.210 Nicotine dependence, cigarettes, uncomplicated
CPT/HCPCS: 43239; 88305; J2704; J7030

== ENCOUNTER → 2023-05-07 09:24 | Outpatient (BNVA) | payer OTHER, SELFPAY | PROVIDERS: PCP Registered Nurse; Visit Provider Registered Nurse | DX: E55.9 Vitamin D deficiency, unspecified (principal); I10 Essential (primary) hypertension; E78.5 Hyperlipidemia, unspecified | CPT/HCPCS: 80053; 80061; 82306; 85025 ==

== ENCOUNTER 2023-05-11 10:20 | Outpatient (CLI) | payer OTHER, SELFPAY ==
--- NOTE | 2023-05-11 10:30 | MM_ITS ---
WS: [id number] VIEWS: MLO and CC views both breasts. 3D digital tomosynthesis is also included in this exam. No priors. Findings: There was no sign of mass, architectural distortion or suspicious calcification in either breast. Th ere are scattered areas of fibroglandular density. MM/[place] [id number] Impression: BI-RADS: 2-Benign finding. FOLLOW-UP: 1 Year Follow-up This mammogram was also analyzed by the Computer Aided Detection System R2 Imag e Rat [employer]urist.
== END 2023-05-11 10:21 | disposition home or self-care (01) ==
LOC: RAD 10:23 → MOBLMAM 10:28
PROVIDERS: PCP Registered Nurse; Visit Provider Registered Nurse
DX: Z12.31 Encounter for screening mammogram for malignant neoplasm of breast (principal)
CPT/HCPCS: 77063; 77067

== ENCOUNTER 2023-05-15 13:35 | Outpatient (CLI) | payer OTHER, SELFPAY ==
--- NOTE | 2023-05-15 14:15 | CT_ITS ---
WS: [id number] LDCT LUNG CANCER SCREENING TECHNIQUE: Noncontrast CT of the chest with coronal and sagittal reformatted images. CLINICAL INFORMATION: F17.210 - Nicotine dependence, cigarettes, uncomplicated COMPARISON: None. DLP: 45.89 mGy.cm DIvol: Mean CTDIvol: 0.70 (mGy) All CT scans at [facility] use at least one of these dose optimization techniques: automat ed exposure control; mA and/or kV adjustment per patient size (includes targeted exams where dose is matched to clinical indication); or iterative reconstruction. FINDINGS: Moderate chronic emphysematous changes. No acute pulmonary infiltrates. Subsegmental atelectasis in t he upper lobes anteriorly. Calcified granuloma RIGHT lower lobe. Tiny nodule along the LEFT fissure. Aortic calcification. No mediastinal or hilar lymphadenopathy. No axillary lymphadenopathy. Cholecystectomy clips. Adrenal glands are normal. Tiny esophageal hiatal hernia. CT/CT lung screening [id number] IMPRESSION: LUNG-RADS: 2-Benign Appearance or Behavior FOLLOW UP: 12 Month: Continue annual screening with LDCT
== END 2023-05-15 13:36 | disposition home or self-care (01) ==
PROVIDERS: PCP Registered Nurse; Visit Provider Registered Nurse
DX: Z12.2 Encounter for screening for malignant neoplasm of respiratory organs (principal); F17.210 Nicotine dependence, cigarettes, uncomplicated
CPT/HCPCS: 71271

== ENCOUNTER → 2023-06-11 08:45 | Outpatient (BNVA) | payer OTHER, SELFPAY | PROVIDERS: PCP Registered Nurse; Visit Provider Registered Nurse | DX: I10 Essential (primary) hypertension (principal) | CPT/HCPCS: 80053 ==

== ENCOUNTER → 2023-09-22 11:59 | Outpatient (BNVA) | payer OTHER, SELFPAY | PROVIDERS: PCP Registered Nurse; Visit Provider Registered Nurse | DX: R21 Rash and other nonspecific skin eruption (principal) | CPT/HCPCS: 86003; 86008; 88304 ==

== ENCOUNTER → 2024-01-11 14:43 | Outpatient (BNVA) | payer OTHER, SELFPAY | PROVIDERS: PCP Registered Nurse; Visit Provider Registered Nurse | DX: R21 Rash and other nonspecific skin eruption (principal); L65.9 Nonscarring hair loss, unspecified | CPT/HCPCS: 80053; 84443; 85025; 85651; 86038; 86140; 86431 ==

== ENCOUNTER 2024-02-03 11:33 | Outpatient (CLI) | payer OTHER, SELFPAY ==
[2024-02-03 12:31] LABS: Hepatitis C Virus Antibody Non-Reactive (Nonreactive)
== END 2024-02-03 11:34 | disposition home or self-care (01) ==
LOC: LAB 11:34
PROVIDERS: PCP Registered Nurse; Visit Provider Nurse Practitioner Family
DX: L43.8 Other lichen planus (principal); L90.0 Lichen sclerosus et atrophicus; D22.5 Melanocytic nevi of trunk; D22.39 Melanocytic nevi of other parts of face
CPT/HCPCS: 86803

== ENCOUNTER → 2024-07-21 10:19 | Outpatient (BNVA) | payer OTHER, SELFPAY | PROVIDERS: PCP Registered Nurse; Visit Provider Registered Nurse | DX: I10 Essential (primary) hypertension (principal) | CPT/HCPCS: 80053; 80061; 85025 ==

== ENCOUNTER 2024-08-01 06:38 | Outpatient (CLI) | payer OTHER, SELFPAY ==
--- NOTE | 2024-08-01 07:00 | CT_ITS ---
WS: [id number] LDCT LUNG CANCER SCREENING HISTORY: Z12.2 - Encounter for screening for malignant neoplasm of... TECHNIQUE: Axial imaging performed from the apices to 1 cm below the costophrenic angles. Coronal and sagittal reformats are submitted with axial MIP series. All CT scans at [facility] use at least one of these dose optimization techniques: automated exposure control; mA and/or kV adjustment per patient size (includes targeted exams where dose is matched to clinical indication); or iterativ e reconstruction. DLP: 49.10 mGy.cm DIvol: Mean CTDIvol: 0.90 (mGy) COMPARISON: 05/15/2023 Diagnostic quality: Satisfactory Lungs: Moderate hyperinflation. New 5 mm linear nodule RIGHT apex. 5 mm subsolid nodule RIGHT upper l obe, image 58 of series 4. Noncalcified 3 mm nodule periphery RIGHT upper lobe, image 106 of series 4 . Small amount of mucous retention in the bronchi. Heart: Normal size heart with no pericardial effusion.. Other findings: Mild atherosclerosis aorta. Normal size pulmonary artery. Normal size heart. Small hi atal hernia. No adrenal mass. Sternal deformity probably from prior0 fracture with healing. CT/CT lung screening [id number] IMPRESSION: LUNG-RADS: 3-Probably Benign FOLLOW UP: 6 Month LDCT OTHER FINDINGS (S MODIFIER): None.
== END 2024-08-01 06:39 | disposition home or self-care (01) ==
LOC: RAD 06:40
PROVIDERS: PCP Registered Nurse; Visit Provider Registered Nurse
DX: Z12.2 Encounter for screening for malignant neoplasm of respiratory organs (principal); I70.0 Atherosclerosis of aorta; K44.9 Diaphragmatic hernia without obstruction or gangrene; R91.8 Other nonspecific abnormal finding of lung field
CPT/HCPCS: 71271

== ENCOUNTER 2024-08-02 14:35 | Outpatient (CLI) | payer OTHER, SELFPAY ==
--- NOTE | 2024-08-02 15:00 | MM_ITS ---
WS: [id number] BILATERAL 3D TOMOSYNTHESIS DIGITAL SCREENING MAMMOGRAPHY WITH CAD CLINICAL INFORMATION: Z12.39 - Encounter for other screening for malignant neop... HISTORY: Screening mammogram. No current complaints. COMPARISON: 2022 TECHNIQUE: Bilateral CC and MLO views. FINDINGS: Scattered fibroglandular densities bilaterally. No suspicious focal mass, asymmetry, calcifications, or architectural distortion. No evidence of malignancy. Vascular calcification. Stable ovoid nodule u pper outer RIGHT breast likely incidental lymph node. MM/MM scr BI tomosynthesis [id number] IMPRESSION: DENSITY: There are scattered areas of fibroglandular density. BI-RADS: 2 - Benign. FOLLOW UP: 1 Year Follow-up Recommend return to annual screening mammography.
--- NOTE | 2024-08-02 15:30 | XR_ITS ---
WS: [email or web address] SCREENING DEXA SCAN [employer] CLINICAL INFORMATION: M81.0 - Age-related osteoporosis without current patholog... COMPARISON: None. FINDINGS: The L1-L4 bone mineral density measures 0.791 g/cm2. This corresponds to a T score score of -3.2 and Z score of -2.1. Left femoral neck bone mineral density measures 0.690 g/cm2. This corresponds to a T score of -2.5 an d Z score of -1.6. Right femoral neck bone mineral density measures 0.687 g/cm2. This corresponds to a T score -2.5of an d Z score of -1.7. Mean femoral neck bone mineral density measures 0.689 g/cm2. This corresponds to a T score of -2.5 an d Z score of -1.7. XR/XR DEXA axial skeleton* [id number] IMPRESSION: Osteoporosis lumbar spine. Osteoporosis femoral necks. Patient's FRAX calculated 10 year probability for major osteoporotic fracture i s 12.2% and osteoporotic hip fracture is 3.6%.
== END 2024-08-02 14:36 | disposition home or self-care (01) ==
PROVIDERS: PCP Registered Nurse; Visit Provider Registered Nurse
DX: Z12.39 Encounter for other screening for malignant neoplasm of breast (principal); Z13.820 Encounter for screening for osteoporosis; M81.0 Age-related osteoporosis without current pathological fracture; R92.323 Mammographic fibroglandular density, bilateral breasts; R92.1 Mammographic calcification found on diagnostic imaging of breast; N63.11 Unspecified lump in the right breast, upper outer quadrant
CPT/HCPCS: 77063; 77067; 77080

== ENCOUNTER 2024-08-24 07:08 | Day surgery (SDC) | payer OTHER, SELFPAY ==
[2024-08-24 07:24] VITALS: BMI 24.0
[2024-08-24 07:30] VITALS: BP 115/87; PULSE 89; RESP 18; TEMP 36.8; O2SAT 97
[2024-08-24] MEDS: sodium chloride 0.9% 1,000 ML 30 ML IV (07:34)
--- NOTE | 2024-08-24 07:37 | ANES.PREANE2 ---
Pre-Anesthetic Assessment Height/Weight: Height 5 ft 4 in Weight 140 lb Temp Pulse Resp BP Pulse Ox O2 Del Method 98.2 F 89 18 115/87 97 Room Air 08/24/24 07:30 08/24/24 07:30 08/24/24 07:30 08/24/24 07:30 08/24/24 07:30 08/24/24 07:30 Preop Diagnosis: Screening colonoscopy Operation Date: 08/24/24 08:30 Proposed Procedures p EGD Dilation W/ Balloon 49186, 58276, G0105, Z86.0100, R13.10(Not Applicable) - Chase Christiansen DO s Colonoscopy(Not Applicable) - Chase Christiansen DO Was Beta Estuardo taken within 24 hours: N/A Was Clonidine taken within 24 hours: N/A Last intake: Intake Last Liquid Date 08/23/24 Last Liquid Time 23:59 Last Solid Date 08/22/24 Last Solid Time 12:00 Social Tobacco and No alcohol Exam alert, oriented x 3 and regular rate & rhythm Diminished breath sounds bilaterally Airway Submandibular: within normal limits Cervical ROM: within normal limits Mallampati: Class II Dentition: full Comments: Comments: Poor dentition, denies any loose teeth Anesthetic Plan ASA status: 3 Anesthesia: MAC Other: No prior issues with anesthesia Completed bowel prep Current smoker, uses inhalers. Admits to getting SOB with exertion. Diminished breath sounds on auscultation. No wheezing noted GERD on Protonix Hypertension on lisinopril. Preop BP 115/87 Labs 07/21/2024 reviewed and acceptable for procedure Plan for MAC anesthetic Medications/Allergies Home Medications Medication Instructions Recorded Confirmed Last Taken Type nebulizer kit with tubing #1 ea 02/09/24 08/02/24 Unknown Rx clonazepam 0.5 mg tablet 0.5 mg PO DAILY PRN anxiety 30 06/20/24 08/22/24 08/22/24 Rx days #12 tabs linaclotide 72 mcg capsule 72 mcg PO DAILY #30 caps 08/01/24 08/22/24 08/22/24 Rx (Linzess) pantoprazole 40 mg tablet,delayed 40 mg PO BID 6 weeks #84 tabs 08/01/24 08/22/24 08/23/24 Rx release (Protonix) albuterol sulfate 2.5 mg/3 mL 2.5 mg inhalation Q4H PRN 08/22/24 08/22/24 08/22/24 History (0.083 %) solution for nebulization broncospasm albuterol sulfate 90 mcg/actuation 1 puff inhalation QID 08/22/24 08/22/24 08/22/24 History aerosol inhaler budesonide 160 mcg-glycopyr 9 1 inh inhalation BID 08/22/24 08/22/24 08/24/24 04:00 History mcg-formot 4.8 mcg/actuation HFA inhaler (Breztri Aerosphere) cetirizine 10 mg tablet 10 mg PO DAILY PRN Allergic 08/22/24 08/22/24 08/22/24 History Symptoms lisinopril 10 mg tablet 15 mg PO DAILY 08/22/24 08/22/24 08/23/24 History Allergies Allergy/AdvReac Type Severity Reaction Status Date / Time No Known Allergies Allergy Verified 08/22/24 12:24 PFSH Anesthesia Medical History Colon polyp Depression with anxiety Essential hypertension Surgical History History of cholecystectomy lap-2020 History of hysterectomy H/O vaginal surgery 08/31/2022- Vaginal cuff laceration repair performed on 08/31/2022. S/P tonsillectomy Hx of colonoscopy History of esophagogastroduodenoscopy (EGD) Family History Mother Stroke Other Heart disease Denies family history of Colon cancer Ovarian cancer Diabetes Clotting disorder Hyperlipidemia Breast cancer Anesthesia complication Bleeding disorder Hypertension Uterine cancer Thyroid disease Social History Smoking and tobacco/nicotine status: current every day tobacco/nicotine user cigarettes Data Anesthesia Cardiac Studies: No Data to Display
--- NOTE | 2024-08-24 07:40 | PC.NURSE ---
IV started per Priti spn first attempt
--- NOTE | 2024-08-24 08:40 | W.PM.OPSUD ---
Surgery/Procedure H&P Update DATE OF PROCEDURE: August 24, 2024 DATE H&P PERFORMED: 08/01/24 H&P UPDATE INFORMATION: I have reviewed H&P completed within last 30 days, I have examined patient prior to procedure and No changes to prior documentation PREOP DIAGNOSIS: Screening colonoscopy PLANNED PROCEDURE: Operation Date: 08/24/24 08:30 Proposed Procedures p EGD Dilation W/ Balloon 58680, 72369, G0105, Z86.0100, R13.10(Not Applicable) - DO yo Carreno Colonoscopy(Not Applicable) - Chase Christiansen DO
[2024-08-24 09:11] VITALS: BP 95/64; PULSE 72; RESP 16; TEMP 36.6; O2SAT 96
[2024-08-24 09:21] VITALS: BP 121/75; PULSE 73; RESP 16; O2SAT 96
[2024-08-24 09:31] VITALS: BP 132/76; PULSE 77; RESP 18; O2SAT 96
--- NOTE | 2024-08-24 09:50 | ANE.PACU2 ---
Inpatient post-anesthesia follow up: Airway intact: Yes Vital signs: Temperature 97.9 F Pulse Rate 77 Respiratory Rate 18 Blood Pressure 132/76 Pulse Oximetry 96 Oxygen Delivery Me thod Room Air Oxygen Flow Rate Fraction of Inspir ed Oxygen Hydration adequate: Yes Nausea and vomiting: No Pain level: 1 Mental status: Baseline
== END 2024-08-24 09:50 | disposition home or self-care (01) ==
PROVIDERS: PCP Registered Nurse; Visit Provider Surgery
PROC: 0DJD8ZZ Inspection of Lower Intestinal Tract, Via Natural or Artificial Opening Endoscopic (ICD-10-PCS; CPT 45378; 2024-08-24 08:30)
DX: Z12.11 Encounter for screening for malignant neoplasm of colon (principal); Z86.0100 Personal history of colon polyps, unspecified; R13.10 Dysphagia, unspecified; K29.50 Unspecified chronic gastritis without bleeding; K22.70 Barrett's esophagus without dysplasia; K21.00 Gastro-esophageal reflux disease with esophagitis, without bleeding; D12.4 Benign neoplasm of descending colon; K57.30 Diverticulosis of large intestine without perforation or abscess without bleeding; K22.2 Esophageal obstruction; I10 Essential (primary) hypertension
CPT/HCPCS: 43239; 45380; 45385; 88305; 88342; J2704; J7030

== ENCOUNTER 2024-10-05 08:06 | Day surgery (SDC) | payer OTHER, SELFPAY ==
[2024-10-05 08:28] VITALS: BP 153/89; PULSE 78; RESP 18; TEMP 36.7; O2SAT 95; BMI 24.0
--- NOTE | 2024-10-05 09:22 | ANES.PREANE2 ---
Pre-Anesthetic Assessment Height/Weight: Height 5 ft 4 in Weight 140 lb Temp Pulse Resp BP Pulse Ox O2 Del Method 98.1 F 78 18 153/89 95 Room Air 10/05/24 08:28 10/05/24 08:28 10/05/24 08:28 10/05/24 08:28 10/05/24 08:28 10/05/24 08:28 Preop Diagnosis: Dysphagia Operation Date: 10/05/24 09:30 Proposed Procedures p EGD Dilation W/ Balloon 12136, R13.10(Not Applicable) - Chase Christiansen, DO Was Beta Estuardo taken within 24 hours: N/A Was Clonidine taken within 24 hours: N/A Last intake: Intake Last Liquid Date 10/04/24 Last Liquid Time 23:55 Last Solid Date 10/04/24 Last Solid Time 20:00 Social Tobacco and No alcohol Exam alert, oriented x 3 and regular rate & rhythm Diminished breath sounds bilaterally Airway Submandibular: within normal limits Cervical ROM: within normal limits Mallampati: Class II Comments: Comments: Poor dentition Anesthetic Plan ASA status: 3 Anesthesia: MAC Other: No prior issues with anesthesia NPO since yesterday Current smoker, uses inhalers. Admits to getting SOB with exertion. Diminished breath sounds on auscultation. No wheezing noted GERD on Protonix Hypertension on lisinopril. Preop BP 153/89 Currently has a headache, will give IV Tylenol Labs 07/21/2024 reviewed and acceptable for procedure Plan for MAC anesthetic Medications/Allergies Home Medications Medication Instructions Recorded Confirmed Last Taken Type nebulizer kit with tubing #1 ea 02/09/24 09/26/24 Unknown Rx pantoprazole 40 mg tablet,delayed 40 mg PO BID 6 weeks #84 tabs 08/01/24 10/03/24 10/04/24 Rx release (Protonix) albuterol sulfate 2.5 mg/3 mL 2.5 mg inhalation Q4H PRN 08/22/24 10/03/24 2 Weeks Ago History (0.083 %) solution for nebulization broncospasm ~09/19/24 albuterol sulfate 90 mcg/actuation 1 puff inhalation QID 08/22/24 10/05/24 10/05/24 History aerosol inhaler 0600 budesonide 160 mcg-glycopyr 9 1 inh inhalation BID 08/22/24 10/05/24 10/05/24 06:00 History mcg-formot 4.8 mcg/actuation HFA inhaler (Breztri Aerosphere) dicyclomine 10 mg capsule 40 mg (4 x 10 mg) PO QID 30 days 09/26/24 10/03/24 10/04/24 Rx #480 caps linaclotide 72 mcg capsule 72 mcg PO DAILY 30 days #30 caps 09/26/24 10/03/24 10/04/24 Rx (Linzess) clonazepam 0.5 mg tablet 0.5 mg PO DAILY PRN anxiety 30 09/27/24 10/03/24 1 Week Ago Rx days #12 tabs ~09/26/24 cetirizine 10 mg tablet 10 mg PO DAILY PRN Allergy Symptoms 10/03/24 10/03/24 10/02/24 History dicyclomine 20 mg tablet 40 mg PO QID 10/03/24 10/03/24 10/03/24 History lisinopril 10 mg tablet 15 mg PO DAILY 10/03/24 10/03/24 10/04/24 History Allergies Allergy/AdvReac Type Severity Reaction Status Date / Time No Known Allergies Allergy Verified 08/22/24 12:24 [facility] Anesthesia Medical History Colon polyp Depression with anxiety Essential hypertension Surgical History History of cholecystectomy lap-2020 History of hysterectomy H/O vaginal surgery 08/31/2022- Vaginal cuff laceration repair performed on 08/31/2022. S/P tonsillectomy Hx of colonoscopy History of esophagogastroduodenoscopy (EGD) Family History Mother Stroke Other Heart disease Denies family history of Colon cancer Ovarian cancer Diabetes Clotting disorder Hyperlipidemia Breast cancer Anesthesia complication Bleeding disorder Hypertension Uterine cancer Thyroid disease Social History Smoking and tobacco/nicotine status: current every day tobacco/nicotine user cigarettes Data Anesthesia Cardiac Studies: No Data to Display
[2024-10-05] MEDS: acetaminophen 1,000 MG/100 ML PIGGYBACK 400 MG IV (09:34)
--- NOTE | 2024-10-05 10:13 | W.PM.OPSUD ---
Surgery/Procedure H&P Update DATE OF PROCEDURE: October 05, 2024 DATE H&P PERFORMED: 09/26/24 H&P UPDATE INFORMATION: I have reviewed H&P completed within last 30 days, I have examined patient prior to procedure and No changes to prior documentation PREOP DIAGNOSIS: Dysphagia PLANNED PROCEDURE: Operation Date: 10/05/24 09:30 Proposed Procedures p EGD Dilation W/ Balloon 71091, R13.10(Not Applicable) - Chase Christiansen DO
[2024-10-05 10:34] VITALS: BP 115/79; PULSE 78; RESP 20; TEMP 36.4; O2SAT 96
[2024-10-05 10:49] VITALS: BP 107/82; PULSE 76; RESP 18; O2SAT 96
--- NOTE | 2024-10-05 11:00 | ANE.PACU2 ---
Inpatient post-anesthesia follow up: Airway intact: Yes Vital signs: Temperature 97.6 F Pulse Rate 76 Respiratory Rate 18 Blood Pressure 107/82 Pulse Oximetry 96 Oxygen Delivery Me thod Room Air Oxygen Flow Rate 3 Fraction of Inspir ed Oxygen Hydration adequate: Yes Nausea and vomiting: No Pain level: 1 Mental status: Baseline
== END 2024-10-05 11:00 | disposition home or self-care (01) ==
PROVIDERS: PCP Registered Nurse; Visit Provider Surgery
DX: R13.10 Dysphagia, unspecified (principal); Z86.0100 Personal history of colon polyps, unspecified; F41.8 Other specified anxiety disorders; I10 Essential (primary) hypertension; F17.210 Nicotine dependence, cigarettes, uncomplicated; K22.2 Esophageal obstruction; K22.70 Barrett's esophagus without dysplasia; K29.50 Unspecified chronic gastritis without bleeding
CPT/HCPCS: 43239; 43249; 88305; 88342; J0131; J2704

== ENCOUNTER 2025-01-30 07:40 | Outpatient (CLI) | payer OTHER, SELFPAY ==
--- NOTE | 2025-01-30 08:00 | CT_ITS ---
WS: [id number] CT chest wo con [id number] HISTORY: R91.1 - Solitary pulmonary nodule TECHNIQUE: Axial imaging performed through the thorax. Coronal and sagittal reformats are submitted. All CT scans at [facility] use at least one of these dose optimization techniques: automated exposure control; mA and/or kV adjustment per patient size (includes targeted exams where dose is matched to clinical indication); or iterative reconstruction. CONTRAST: None DLP: 243.69 mGy.cm COMPARISON: 08/01/2024 Lungs and central airway: Moderate pulmonary hyperexpansion. Linear nodule previously described in the RIGHT upper lobe is no longer present. There are a few bilateral micronodules scattered throughout the lungs and a few very subtle tiny areas of groundglass attenuation. No suspicious mass or mass increasing in size. Thin linear areas of atelectasis upper lobes. Pleura: Normal. No pleural effusion. Heart and pericardium: Normal size heart with no pericardial effusion. Mediastinum and lea: Stable lymph nodes. No adenopathy. Vessels: Mild atherosclerosis aorta. Pulmonary artery is slightly dilated. Chest wall and lower neck: No soft tissue masses. Upper abdomen: Prior cholecystectomy. No adrenal mass. Osseous structures: No destructive process. CT/CT chest wo con [id number] IMPRESSION: 1. Linear nodule RIGHT upper lobe is no longer present. 2. No new pulmonary nodule or mass. No nodule increasing in size. 3. No mediastinal or hilar adenopathy. Recommendation: Return to annual lung screening evaluation.
== END 2025-01-30 07:41 | disposition home or self-care (01) ==
PROVIDERS: PCP Registered Nurse; Visit Provider Registered Nurse
DX: R91.1 Solitary pulmonary nodule (principal); R91.8 Other nonspecific abnormal finding of lung field; J98.11 Atelectasis; I70.0 Atherosclerosis of aorta; Z90.49 Acquired absence of other specified parts of digestive tract
CPT/HCPCS: 71250

== ENCOUNTER 2025-05-24 08:51 | Outpatient (CLI) | payer OTHER, SELFPAY ==
[2025-05-24 09:13] VITALS: PULSE 96; RESP 18; O2SAT 97
== END 2025-05-24 08:52 | disposition home or self-care (01) ==
PROVIDERS: PCP Registered Nurse; Visit Provider Registered Nurse
DX: J43.9 Emphysema, unspecified (principal); R05.9 Cough, unspecified; R06.2 Wheezing; R06.00 Dyspnea, unspecified; F17.210 Nicotine dependence, cigarettes, uncomplicated
CPT/HCPCS: 94060; 94726; 94729; J7613

== ENCOUNTER → 2025-08-01 09:35 | Outpatient (BNVA) | payer OTHER, SELFPAY | PROVIDERS: PCP Registered Nurse; Visit Provider Registered Nurse | DX: Z13.6 Encounter for screening for cardiovascular disorders (principal) | CPT/HCPCS: 80053; 80061; 85025 ==

== ENCOUNTER → 2025-08-14 15:47 | Outpatient (BNVA) | payer OTHER, SELFPAY | PROVIDERS: PCP Registered Nurse; Visit Provider Internal Medicine | DX: J44.9 Chronic obstructive pulmonary disease, unspecified (principal) | CPT/HCPCS: 36415; 85025 ==

== ENCOUNTER 2025-08-24 13:26 | Outpatient (CLI) | payer OTHER, SELFPAY ==
--- NOTE | 2025-08-24 13:40 | MM_ITS ---
WS: [id number] SCREENING DIGITAL BREAST TOMOSYNTHESIS MAMMOGRAM WITH CAD HISTORY: Z12.39 - Encounter for other screening for malignant neop... COMPARISON: 08/02/2024, 05/11/2023 Bilateral CC and MLO with tomosynthesis and synthetic mammography submitted. Computer aided detection analyzed. Breast composition: There are scattered areas of fibroglandular density. Slightly lobulated mass measuring 4 x 2 mm central to the LEFT nipple is identified. This mass is at a middle depth and may have been present on prior studies but appears slightly larger today. Stable lymph node in the upper outer quadrant RIGHT breast. MM/MM scr BI tomosynthesis [id number] IMPRESSION: BI-RADS: 0 - Incomplete: Need additional imaging evaluation. FOLLOW UP: Need Additional Imaging LEFT breast: Spot compression views (CC and MLO). True ML. Ultrasound to follow if abnormality persists.
== END 2025-08-24 13:27 | disposition home or self-care (01) ==
LOC: MOBLMAM 13:28
PROVIDERS: PCP Registered Nurse; Visit Provider Registered Nurse
DX: Z12.31 Encounter for screening mammogram for malignant neoplasm of breast (principal); R92.323 Mammographic fibroglandular density, bilateral breasts; N63.20 Unspecified lump in the left breast, unspecified quadrant; N63.11 Unspecified lump in the right breast, upper outer quadrant
CPT/HCPCS: 77063; 77067

== ENCOUNTER 2025-08-28 09:16 | Outpatient (CLI) | payer OTHER, SELFPAY ==
--- NOTE | 2025-08-28 10:00 | FL_ITS ---
WS: [id number] Modified barium swallow, 08/28/2025 Clinical Data: Feels like food hangs up in throat, occasional choking. Comparison: None. Fluoroscopy time: 2min [id number] # of spot films: 1 Findings: The patient showed some oral spillage with minimal residue in the hypopharynx. There is a possible small diverticulum or minimal achalasia in the posterior hypopharynx. Aspiration did not occur. There is minimal penetration with thin liquids. The barium tablet passed normally from the oral pharynx into the hypopharynx then the esophagus and finally the stomach. FL/FL barium swallow modifd [id number] Impression: 1. Minimal penetration with thin liquids but no aspiration. 2. Small diverticulum or minimal achalasia of the posterior hypopharynx.
== END 2025-08-28 09:17 | disposition home or self-care (01) ==
PROVIDERS: PCP Registered Nurse; Visit Provider Surgery
DX: R13.10 Dysphagia, unspecified (principal); K57.90 Diverticulosis of intestine, part unspecified, without perforation or abscess without bleeding
CPT/HCPCS: 74230; 92611

== ENCOUNTER 2025-08-31 08:52 | Day surgery (SDC) | payer OTHER, SELFPAY ==
[2025-08-31 09:02] VITALS: BP 122/90; PULSE 90; RESP 18; TEMP 36.1; O2SAT 94; BMI 23.3
--- NOTE | 2025-08-31 09:30 | W.PM.OPSUD ---
Surgery/Procedure H&P Update DATE OF PROCEDURE: August 31, 2025 DATE H&P PERFORMED: 08/22/25 H&P UPDATE INFORMATION: I have reviewed H&P completed within last 30 days, I have examined patient prior to procedure, No changes to prior documentation, H&P is in [facility] EMR on date indicated and Risks and benefits of the procedure reviewed PLANNED PROCEDURE: Operation Date: 08/31/25 10:50 Proposed Procedures p EGD Dilation W/ Balloon 73281 R13.10(Not Applicable) - Antonio Wilson MD
--- NOTE | 2025-08-31 09:41 | P.ANESASSM_ITS ---
Pre-Anesthetic Assessment Height/Weight: Height 1.65 m Weight 63.503 kg Temp Pulse Resp BP Pulse Ox O2 Del Method 97 F L 90 18 122/90 94 Room Air 08/31/25 09:02 08/31/25 09:02 08/31/25 09:02 08/31/25 09:02 08/31/25 09:02 08/31/25 09:02 Operation Date: 08/31/25 10:50 Proposed Procedures p EGD Dilation W/ Balloon 74937 R13.10(Not Applicable) - Antonio Wilson MD Familial anesthetic complications: none Was Beta Estuardo taken within 24 hours: N/A Was Clonidine taken within 24 hours: N/A Last intake: Intake Last Liquid Date 08/30/25 Last Liquid Time 23:00 Last Solid Date 08/30/25 Last Solid Time 18:00 Social Tobacco and No alcohol Exam alert and oriented x 3 Airway Submandibular: within normal limits Cervical ROM: within normal limits Mallampati: Class II History/ROS No significant history except as noted Pulmonary Chronic Obstructive Pulmonary Disease pulm nodule CV/HEM Hypertension None reported Hepatic None reported GI Gastroesophageal Reflux Disease Metabolic None reported Musc/skel None reported Neuropsych Anxiety and Depression Anesthetic Plan ASA status: 3 Anesthesia: Anesthesia Evaluation and MAC Medications/Allergies Home Medications ?Medication ?Instructions ?Recorded ?Confirmed ?Last Taken ?Type nebulizer kit with tubing #1 ea 02/09/24 08/22/25 Unkn own Rx albuterol sulfate 90 mcg/actuation 1 puff inhalation Q ID 08/22/24 08/28/25 08/30/25 History aerosol inhaler dicyclomine 10 mg capsule 40 mg (4 x 10 mg) PO QID 30 days 09/26/24 08/28/25 08/30/25 Rx #480 caps linaclotide 72 mcg capsule 72 mcg PO DAILY 30 days #30 caps 09/26/24 08/28/25 08/27/25 Rx (Linzess) clonazepam 0.5 mg tablet 0.5 mg PO DAILY PRN anxiety 30 05/17/25 08/28/25 08/27/25 Rx days #12 tabs pantoprazole 40 mg tablet,delayed 40 mg PO DAILY 1 thu #30 tabs 05/17/25 08/28/25 08/30/25 Rx release (Protonix) amlodipine 5 mg tablet 5 mg PO DAILY 90 days #90 ta bs 07/24/25 08/28/25 08/30/25 Rx budesonide 160 mcg-glycopyr 9 1 inh inhalation BID #10 .7 grams 07/24/25 08/28/25 08/28/25 Rx mcg-formot 4.8 mcg/actuation HFA inhaler (Breztri Aerosphere) lisinopril 30 mg tablet 30 mg PO DAILY 90 days #90 t abs 07/24/25 08/28/25 08/30/25 Rx benzonatate 100 mg capsule 100 mg PO BID PRN cough #20 caps 08/14/25 08/28/25 08/27/25 Rx roflumilast 250 mcg tablet 250 mcg PO DAILY 4 weeks #3 0 tabs 08/14/25 08/28/25 1 Day Ago Rx (Daliresp) ~08/27/25 dicyclomine 20 mg tablet 20 mg PO QID 30 days #120 ta bs 08/22/25 08/28/25 08/30/25 Rx nicotine See Rx Instructions transder mal 08/22/25 08/28/25 Unknown Rx 21mg/24hr-14mg/24hr-7mg/24hr daily .COMPLEX #56 patche s transderm patches,sequentl cetirizine 10 mg tablet 10 mg PO DAILY PRN allergies 08/28/25 08/28/25 1 Week Ago History ~08/21/25 Allergies Allergy/AdvReac Type Severity Reaction Status Date / Time No Known Allergies Allergy Verified 08/28/25 10:28 Current Medications Generic Name Dose Route Start Last Admin Trade Name Freq PRN Reason Stop Dose Admin Sodium Chloride 1,000 mls @ 15 mls/hr 08/31/25 08:55 08/31/25 09:07 Sodium Chloride 0.9% IV 09/01/25 08:54 15 mls/hr .Q24H PRN Administration COLONOSCOPY FLUIDS PFSH Anesthesia Medical History Multiple lung nodules Colon polyp Depression with anxiety Essential hypertension Surgical History History of cholecystectomy lap-2020 History of hysterectomy H/O vaginal surgery 08/31/2022- Vaginal cuff laceration repair performed on 08/31/2022. S/P tonsillectomy Hx of colonoscopy History of esophagogastroduodenoscopy (EGD) Family History Mother Stroke Other Heart disease Denies family history of Colon cancer Ovarian cancer Diabetes Clotting disorder Hyperlipidemia Breast cancer Anesthesia complication Bleeding disorder Hypertension Uterine cancer Thyroid disease Social History Smoking and tobacco/nicotine status: current every day tobacco/nicotine user (1 ppd X 47 years) cigarettes
[2025-08-31 10:30] VITALS: BP 96/66; PULSE 80; RESP 16; TEMP 36.4; O2SAT 94
[2025-08-31] MEDS: ondansetron 2 mg/ML SDV 2 mL 4 MG IVP (10:35)
[2025-08-31 10:40] VITALS: BP 109/65; PULSE 89; RESP 16; O2SAT 95
--- NOTE | 2025-08-31 10:58 | ANE.PACU2 ---
Inpatient post-anesthesia follow up: Airway intact: Yes Vital signs: Temperature 97.5 F Pulse Rate 89 Respiratory Rate 16 Blood Pressure 109/65 Pulse Oximetry 95 Oxygen Delivery Me thod Room Air Oxygen Flow Rate Fraction of Inspir ed Oxygen Hydration adequate: Yes Nausea and vomiting: No Pain level: 1 Mental status: Baseline
== END 2025-08-31 10:58 | disposition home or self-care (01) ==
PROVIDERS: PCP Registered Nurse; Visit Provider Surgery
DX: R13.10 Dysphagia, unspecified (principal); K44.9 Diaphragmatic hernia without obstruction or gangrene; Q39.6 Congenital diverticulum of esophagus; J44.9 Chronic obstructive pulmonary disease, unspecified; I10 Essential (primary) hypertension; K21.9 Gastro-esophageal reflux disease without esophagitis; F41.8 Other specified anxiety disorders; Z86.0100 Personal history of colon polyps, unspecified; F17.210 Nicotine dependence, cigarettes, uncomplicated
CPT/HCPCS: 43239; 88305; J2405; J2704; J7030

== ENCOUNTER 2025-09-12 09:28 | Outpatient (CLI) | payer OTHER, SELFPAY ==
--- NOTE | 2025-09-12 09:35 | MM_ITS ---
WS: [id number] ADDITIONAL VIEWS LEFT MAMMOGRAM WITH DIGITAL BREAST TOMOSYNTHESIS. LEFT breast ultrasound, limited HISTORY: ABNORMAL MAMMOGRAM COMPARISON: 08/24/2025, 08/02/2024, 05/11/2023 Spot compression views LEFT breast in CC, MLO projections and true ML submitted with digital breast tomosynthesis and SM. Breast composition: There are scattered areas of fibroglandular density. Reidentified is the hypoechoic mass measuring 0.4 x 0.3 x 0.4 cm central to the LEFT nipple at a middle depth. This may be a small lymph node. LEFT breast ultrasound, limited. Mildly prominent duct posterior to the nipple. No internal echoes. There is an additional small cyst retroareolar which corresponds to the mammographic abnormality. Ovoid cyst measures 0.4 x 0.3 x 0.2 cm. MM/MM diag LT tomosynthesis [id number] IMPRESSION: BI-RADS: 2 - Benign. FOLLOW UP: 1 Year Follow-up Benign-appearing cysts and dilated duct in the anterior LEFT breast. Return to annual screening mammography.
== END 2025-09-12 09:29 | disposition home or self-care (01) ==
LOC: RAD 09:29
PROVIDERS: PCP Registered Nurse; Visit Provider Registered Nurse
DX: R92.8 Other abnormal and inconclusive findings on diagnostic imaging of breast (principal); R92.322 Mammographic fibroglandular density, left breast; N63.42 Unspecified lump in left breast, subareolar; N60.02 Solitary cyst of left breast
CPT/HCPCS: 76642; 77061; 77063

== ENCOUNTER 2025-09-20 07:52 | Outpatient (CLI) | payer OTHER, SELFPAY | END 2025-09-20 07:53 | disposition home or self-care (01) | LOC: RT 07:54 | PROVIDERS: PCP Registered Nurse; Visit Provider Internal Medicine | DX: J44.1 Chronic obstructive pulmonary disease with (acute) exacerbation (principal) | CPT/HCPCS: 94618 ==

== ENCOUNTER → 2025-10-12 15:31 | Outpatient (BNVA) | payer OTHER, SELFPAY | PROVIDERS: PCP Registered Nurse; Visit Provider Internal Medicine | DX: Z01.89 Encounter for other specified special examinations (principal) | CPT/HCPCS: 36415; 85004; 85048 ==